=== PATIENT | female | born 1995 | race Caucasian/White ===

== ENCOUNTER 2017-09-02 14:55 | Emergency (ER) | payer SELFPAY ==
[2017-09-02 16:31] LABS: ABSOLUTE LYMPHOCYTES (AUTO) 1.6 10^3/uL (0.5-4.7); ABSOLUTE MONOCYTES (AUTO) 0.3 10^3/uL (0.1-1.4); ABSOLUTE NEUT (AUTO) 3.4 10^3/uL (1.7-8.2); BASOPHILS % (AUTO) 0.5 % (0-2); EOSINOPHILS % (AUTO) 0.3 % (0-6); HEMATOCRIT 34.7 % (36.0-47.0); HEMOGLOBIN 12.2 g/dL (12.0-15.5); LYMPHOCYTES % (AUTO) 30.3 % (13-45); MEAN CORPUSCULAR HEMOGLOBIN 30.9 pg (27.0-33.4); MEAN CORPUSCULAR HGB CONC 35.2 g/dL (32.0-36.0); MEAN CORPUSCULAR VOLUME 88 fl (80-97); MONOCYTES % (AUTO) 5.5 % (3-13); PLATELET COUNT 173 10^3/uL (150-450); RED BLOOD COUNT 3.96 10^6/uL (3.72-5.28); RED CELL DISTRIBUTION WIDTH 13.4 % (11.5-14.0); SEGMENTED NEUTROPHILS % (AUTO) 63.4 % (42-78); TOTAL CELLS COUNTED % (AUTO) 100 %; WHITE BLOOD COUNT 5.3 10^3/uL (4.0-10.5)
[2017-09-02 16:45] LABS: ALANINE AMINOTRANSFERASE 25 U/L (9-52); ALBUMIN 4.1 g/dL (3.5-5.0); ALKALINE PHOSPHATASE 46 U/L (38-126); ANION GAP 10 (5-19); ASPARTATE AMINO TRANSFERASE 17 U/L (14-36); BILIRUBIN,DIRECT 0.2 mg/dL (0.0-0.4); BILIRUBIN,TOTAL 0.3 mg/dL (0.2-1.3); BLOOD UREA NITROGEN 8 mg/dL (7-20); CALCIUM 9.1 mg/dL (8.4-10.2); CARBON DIOXIDE 21 mmol/L (22-30); CHLORIDE 106 mmol/L (98-107); GLUCOSE 82 mg/dL (75-110); POTASSIUM 3.7 mmol/L (3.6-5.0); SODIUM 137.2 mmol/L (137-145)
--- NOTE | 2017-09-02 16:58 | ER Document Report ---
ED GI/ - General Chief Complaint: OB Problem (<20wks) Stated Complaint: POSSIBLE Time Seen by Provider: 09/02/17 15:55 Mode of Arrival: Ambulatory Information source: Patient Notes: 22-year-old female presents to ED for complaint of abdominal pain pelvic pain since June. She states she took multiple test at home and they were positive. She states her period was in the end of May. She states she has been nauseated every morning. She states she has been taking vitamin B6. She states she needs to know how far long she is so that she can set up care. She states she has not seen a doctor or the health department. She states she is currently taking vitamins. TRAVEL OUTSIDE OF THE [place] IN LAST 30 DAYS: No - HPI Patient complains to provider of: Abdominal pain, Vomiting Onset: Other - June Timing/Duration: Intermittent Quality of pain: Pressure Severity at maximum: Severe Severity in ED: Moderate Pain Level: 3 Location: LUQ, LLQ, RUQ, RLQ Vaginal bleeding (Compared to normal period): None Associated symptoms: Nausea, Vomiting Exacerbated by: Denies Relieved by: Denies Similar symptoms previously: Yes Recently seen / treated by doctor: No - Related Data Allergies/Adverse Reactions: No Known Allergies Allergy (Verified 09/02/17 16:32) Past Medical History - General Information source: Patient - Social History Smoking Status: Former Smoker Cigarette use (# per day): No Chew tobacco use (# tins/day): No Smoking Education Provided: No Frequency of alcohol use: None Drug Abuse: None Lives with: Parents Family History: CAD, COPD, CVA, DM, Hyperlipidemia, Hypertension. denies: Arthritis, Malignancy, Thyroid Disfunction Patient has suicidal ideation: No Patient has homicidal ideation: No - Past Medical History Cardiac Medical History: Reports: None Pulmonary Medical History: Reports: None EENT Medical History: Reports: None Neurological Medical History: Reports: None Endocrine Medical History: Reports: None Renal/ Medical History: Reports: None Malignancy Medical History: Reports: None GI Medical History: Reports: Hx Gastritis, Hx Gastroesophageal Reflux Disease, Hx Ulcer Skin Medical History: Reports None Psychiatric Medical History: Reports: Hx Anxiety, Hx Depression Traumatic Medical History: Reports: None Infectious Medical History: Reports: None Surgical Hx: Negative Past Surgical History: Reports: None - Immunizations Immunizations up to date: Yes Hx Diphtheria, Pertussis, Tetanus Vaccination: Yes Review of Systems - Review of Systems Constitutional: No symptoms reported EENT: No symptoms reported Cardiovascular: No symptoms reported Respiratory: No symptoms reported Gastrointestinal: Abdominal pain, Nausea, Vomiting Genitourinary: No symptoms reported Female Genitourinary: Musculoskeletal: No symptoms reported Skin: No symptoms reported Hematologic/Lymphatic: No symptoms reported Neurological/Psychological: No symptoms reported -: Yes All other systems reviewed and negative Physical Exam - Vital signs Vitals: Temp Pulse Resp BP Pulse Ox 98.3 F 76 15 120/57 L 99 09/02/17 15:03 09/02/17 15:03 09/02/17 15:03 09/02/17 15:03 09/02/17 15:03 Interpretation: Normal - General General appearance: Appears well, Alert - HEENT Head: Normocephalic, Atraumatic Eyes: Normal Pupils: PERRL - Respiratory Respiratory status: No respiratory distress Chest status: Nontender Breath sounds: Normal Chest palpation: Normal - Cardiovascular Rhythm: Regular Heart sounds: Normal auscultation Murmur: No - Abdominal Inspection: Normal, Gravid female Distension: No distension Bowel sounds: Normal Tenderness: Tender - Generalized Organomegaly: No organomegaly - Back Back: Normal, Nontender - Extremities General upper extremity: Normal inspection, Nontender, Normal color, Normal ROM , Normal temperature General lower extremity: Normal inspection, Nontender, Normal color, Normal ROM , Normal temperature, Normal weight bearing. No: Karina's sign - Neurological Neuro grossly intact: Yes Cognition: Normal Orientation: AAOx4 Avila Coma Scale Eye Opening: Spontaneous Marion Coma Scale Verbal: Oriented Marion Coma Scale Motor: Obeys Commands Marion Coma Scale Total: 15 Speech: Normal Motor strength normal: LUE, RUE, LLE, RLE Sensory: Normal - Psychological Associated symptoms: Normal affect, Normal mood - Skin Skin Temperature: Warm Skin Moisture: Dry Skin Color: Normal Course - Re-evaluation Re-evalutation: 09/02/17 19:03 Discussed labs and ultrasound with patient. Copy of labs and ultrasound given the patient to follow-up with the primary doctor and OR DIRECTOR. Will discharge patient home. - Vital Signs Vital signs: Temp Pulse Resp BP Pulse Ox 98.3 F 76 15 120/57 L 99 09/02/17 15:03 09/02/17 15:03 09/02/17 15:03 09/02/17 15:03 09/02/17 15:03 - Laboratory Result Diagrams: 09/02/17 16:21 09/02/17 16:21 Laboratory results interpreted by me: 09/02/17 09/02/17 09/02/17 16:21 16:21 16:33 Hct 34.7 L Carbon Dioxide 21 L Creatinine 0.49 L Beta HCG, Quant 46520.00 H Urine Ketones 20 H - Diagnostic Test Radiology reviewed: Image reviewed, Reports reviewed Discharge - Discharge Clinical Impression: Abdominal pain affecting Additional Instructions: ABDOMINAL PAIN: There are many causes of abdominal pain. Pain can mean a serious problem requiring surgery (such as appendicitis). It can also be an innocent problem that goes away on its own (such as a viral infection). Often, time must pass to determine the cause of pain. The physician does not feel that hospitalization is necessary, at present. Things may change within the next 24 hours. Call the doctor or come back for re- examination if any problems occur, such as: (1) Pain that becomes more severe, steady, or becomes concentrated in one specific area. Also, pain that is more severe with movement or coughing. (2) Vomiting that persists or becomes more frequent. (3) Blood in the vomitus, urine, or bowel movements. Blood in the stool may have a tarry or black appearance. (4) Shaking chills or fever greater than 100 degrees F. (5) The abdomen becomes more distended or swollen. (6) Bowel movements cease. (7) Failure to improve as expected. You are . care is best started as early in as possible. If you're unsure about continuing this , you should discuss this with your physician or with occupational physician at [facility]. You should take only medications approved by your physician. Acetaminophen can safely be taken for minor pains. As a rule, medication for chronic conditions such as asthma or seizures can safely be continued. You should discuss with the physician every medicine you take. Any regular exercise program can be continued. Talk to your physician, however, before engaging in competitive or demanding sports. Alcohol, smoking, and "street drugs" are dangerous to your baby. Cocaine is especially dangerous. Don't use any illicit drugs! Use vitamin B6 for your nausea with . Also dinora helps with nausea during pregnancies try using dinora snaps and dinora lore to help you. Please be sure to call the health department or OR DIRECTOR promptly to start with your workup. You are now 13 weeks 6 days with estimated dated delivery of March 04, 2018. I have given you a copy of the labs and written ultrasound report for follow-up with your primary doctor and your OR DIRECTOR. FOLLOW-UP CARE: If you have been referred to a physician for follow-up care, call the physician s office for an appointment as you were instructed or within the next two days. If you experience worsening or a significant change in your symptoms, notify the physician immediately or return to the Emergency Department at any time for re-evaluation.
[2017-09-02 17:01] LABS: APPEARANCE,URINE SLIGHTLY-CLOUDY; BILIRUBIN,URINE NEGATIVE (NEGATIVE); COLOR,URINE YELLOW; GLUCOSE, URINE NEGATIVE (NEGATIVE); KETONES,URINE 20 mg/dL (NEGATIVE); LEUKOCYTE ESTERASE,URINE NEGATIVE (NEGATIVE); NITRITE,URINE NEGATIVE (NEGATIVE); PROTEIN,URINE NEGATIVE (NEGATIVE); URINE SPECIFIC GRAVITY 1.015; UROBILINOGEN,URINE NEGATIVE mg/dL (<2.0)
[2017-09-02 18:04] LABS: URINE AMPHETAMINES SCREEN NEGATIVE; URINE BARBITURATES SCREEN NEGATIVE; URINE BENZODIAZEPINES SCREEN NEGATIVE; URINE COCAINE SCREEN NEGATIVE; URINE MARIJUANA (THC) SCREEN NEGATIVE; URINE METHADONE SCREEN NEGATIVE; URINE PHENCYCLIDINE SCREEN NEGATIVE
--- NOTE | 2017-09-02 18:37 | RADIOLOGY REPORT (SQ) ---
EXAM DESCRIPTION: U/S OB TRANSVAGINAL W/O DOP COMPLETED DATE/TIME: 09/02/2017 6:25 pm REASON FOR STUDY: pelvic pain COMPARISON: None. TECHNIQUE: Transvaginal static and realtime grayscale images acquired of the pelvis. Additional chris cted spectral and color Doppler images recorded. All images stored on PACs. [id number] LIMITATIONS: None. FINDINGS: FETUS: Living intrauterine . EGA: 13 weeks 6 days DONITA: 03/04/2018 FHR: 158 beats per minute. SUBCHORIONIC BLEED: No SIZE OF BLEED: Not applicable. UTERUS: No masses or anomalies. 13 x 8.7 x 8.7 cm. CERVICAL LENGTH: 3.1 cm. Closed. RIGHT ADNEXA: Ovary not identified. No adnexal free fluid. No adnexal masses. LEFT ADNEXA: Ovary not identified. No adnexal free fluid. No adnexal masses. FREE FLUID: None. OTHER: No other significant finding. IMPRESSION: LIVING INTRAUTERINE . EGA 13 weeks 6 days Trimester of : 2nd. TECHNICAL DOCUMENTATION: JOB ID: [id number]- All Rights Reserved Reading location - IP/workstation name: [email or web address]
[2017-09-02 19:12] VITALS: BP 116/69
== END 2017-09-02 19:15 | disposition home or self-care (01) ==
LOC: ER 14:55
DX: O26.899 Other specified pregnancy related conditions, unspecified trimester (principal); R10.2 Pelvic and perineal pain; R10.12 Left upper quadrant pain; R10.31 Right lower quadrant pain; R10.11 Right upper quadrant pain; R10.32 Left lower quadrant pain; R10.817 Generalized abdominal tenderness; O21.9 Vomiting of pregnancy, unspecified; Z3A.00 Weeks of gestation of pregnancy not specified; Z79.899 Other long term (current) drug therapy; Z87.19 Personal history of other diseases of the digestive system
CPT/HCPCS: 36415; 76817; 80053; 80307; 81001; 84702; 85025; 86900; 86901; 87086; 99284

== ENCOUNTER 2018-01-07 10:39 | Emergency (ER) | payer MEDICAID ==
[2018-01-07] MEDS ORDERED: ACETAMINOPHEN 325 MG TABLET PO ONE (13:17)
[2018-01-07] MEDS ORDERED: ONDANSETRON 4 MG TAB.RAPDIS PO ONE (13:17)
--- NOTE | 2018-01-07 13:23 | ER Document Report ---
ED General - General Chief Complaint: Shortness Of Breath Stated Complaint: BACK PAIN, TROUBLE BREATHING Time Seen by Provider: 01/07/18 11:51 Mode of Arrival: Ambulatory Information source: Patient Notes: Chief complaint: Cough History of complain:( obtained from----patient) 22 years old female who is 32 weeks presents today with cough on and off as well as right-sided chest wall pain at the back, nauseous and vomiting. She was able to hold down the liquids but any solids she throws up. She was given Zofran but she ran out a week ago. Since then she is feeling nauseous and vomiting. No fever chills or other constitutional symptoms. Denies any abdominal pain dysuria or frequency. Denies any diarrhea or constipation. Gradual Onset: Gradual Duration: Last few days Severity: Mild to moderate Quality: Sharp Context: Cough coughing increases the pain. Exacerbating factor and relieving factors: REVIEW OF SYSTEMS: CONSTITUTIONAL : Denies fever, chills, or sweats. Denies recent illness. EENT: Denies eye, ear, throat, or mouth pain or symptoms. Denies nasal or sinus congestion or discharge. Denies throat, tongue, or mouth swelling or difficulty swallowing. CARDIOVASCULAR: Denies chest pain. Denies palpitations or racing or irregular heart beat. Denies ankle edema. RESPIRATORY: Denies cough, cold, or chest congestion. Denies shortness of breath, difficulty breathing, or wheezing. GASTROINTESTINAL: Denies distention. Denies nausea, vomiting, or diarrhea. Denies blood in vomitus, stools, or per rectum. Denies black, tarry stools. Denies constipation. GENITOURINARY: Denies difficulty urinating, painful urination, burning, frequency, blood in urine, or discharge. FEMALE GENITOURINARY: Denies vaginal bleeding, heavy or abnormal periods, irregular periods. Denies vaginal discharge or odor. MUSCULOSKELETAL: Denies back or neck pain or stiffness. Denies joint pain or swelling. SKIN: Denies rash, lesions or sores. HEMATOLOGIC : Denies easy bruising or bleeding. LYMPHATIC: Denies swollen, enlarged glands. NEUROLOGICAL: Denies confusion or altered mental status. Denies passing out or loss of consciousness. Denies dizziness or lightheadedness. Denies headache. Denies weakness or paralysis or loss of use of either side. Denies problems with gait or speech. Denies sensory loss, numbness, or tingling. Denies seizures. PSYCHIATRIC: Denies anxiety or stress. Denies depression, suicidal ideation, or homicidal ideation. ALL OTHER SYSTEMS REVIEWED AND NEGATIVE. PHYSICAL EXAMINATION: GENERAL: Well-appearing, well-nourished and in no acute distress. HEAD: Atraumatic, normocephalic. EYES: Pupils equal round and reactive to light, extraocular movements intact, conjunctiva are normal. ENT: Nares patent, oropharynx clear without exudates. Moist mucous membranes. NECK: Normal range of motion, supple without lymphadenopathy LUNGS: Breath sounds clear to auscultation bilaterally and equal. No wheezes rales or rhonchi. Chest wall-right lateral chest wall tenderness noted on palpation. Distended abdomen due to HEART: Regular rate and rhythm without murmurs ABDOMEN: Soft, nontender, distended abdomen due to . No guarding, no rebound. No masses appreciated. Examination of genitals-deferred Musculoskeletal: Normal range of motion, no pitting or edema. No cyanosis. NEUROLOGICAL: Cranial nerves grossly intact. Normal speech, normal gait. Normal sensory, motor exams PSYCH: Normal mood, normal affect. SKIN: Warm, Dry, normal turgor, no rashes or lesions noted. Dictation was performed using [employer] voice recognition software TRAVEL OUTSIDE OF THE [place] IN LAST 30 DAYS: No - HPI Notes: Dictated - Related Data Allergies/Adverse Reactions: No Known Allergies Allergy (Verified 09/02/17 16:32) Past Medical History - Social History Smoking Status: Never Smoker Cigarette use (# per day): No Chew tobacco use (# tins/day): No Frequency of alcohol use: None Drug Abuse: None Lives with: Family Family History: Reviewed & Not Pertinent, CAD, COPD, CVA, DM, Hyperlipidemia, Hypertension. denies: Arthritis, Malignancy, Thyroid Disfunction Patient has suicidal ideation: No Patient has homicidal ideation: No Renal/ Medical History: Denies: Hx Peritoneal Dialysis GI Medical History: Reports: Hx Gastritis, Hx Gastroesophageal Reflux Disease, Hx Ulcer Musculoskeletal Medical History: Reports Hx Musculoskeletal Deformity Psychiatric Medical History: Reports: Hx Anxiety, Hx Depression Past Surgical History: Reports: Hx Orthopedic Surgery - Immunizations Immunizations up to date: Yes Hx Diphtheria, Pertussis, Tetanus Vaccination: Yes Review of Systems - Review of Systems Notes: Dictated Physical Exam - Vital signs Vitals: Temp Pulse Resp BP Pulse Ox 98.9 F 63 16 126/75 H 98 01/07/18 11:11 01/07/18 11:11 01/07/18 11:11 01/07/18 11:11 01/07/18 11:11 - Notes Notes: Dictated Course - Re-evaluation Re-evalutation: 01/07/18 13:23 It was explained the vomiting and the cough caused a sprain of the right chest wall, she was given Tylenol. - Vital Signs Vital signs: Temp Pulse Resp BP Pulse Ox 98.9 F 63 16 126/75 H 98 01/07/18 11:11 01/07/18 11:11 01/07/18 11:11 01/07/18 11:11 01/07/18 11:11 Discharge - Discharge Clinical Impression: Nausea/vomiting in , Chest wall pain, Cough Condition: Fair Disposition: HOME, SELF-CARE Instructions: Antinausea Medication ([facility]), ([facility]) Prescriptions: Azithromycin [Zithromax] 250 mg PO DAILY #6 tablet Prochlorperazine Maleate [Compazine 10 mg Tablet] 10 mg PO Q6 #30 tablet
[2018-01-07 13:47] VITALS: BP 118/75
== END 2018-01-07 13:45 | disposition home or self-care (01) ==
LOC: ER 10:39
DX: O21.9 Vomiting of pregnancy, unspecified (principal); O26.893 Other specified pregnancy related conditions, third trimester; R07.89 Other chest pain; R05 Cough; R06.02 Shortness of breath; M54.9 Dorsalgia, unspecified; Z3A.32 32 weeks gestation of pregnancy
CPT/HCPCS: 99283; J3490; S0119

== ENCOUNTER 2018-01-17 12:01 | Outpatient (CLI) | payer MEDICAID ==
[2018-01-17 12:42] LABS: APPEARANCE,URINE CLEAR; BILIRUBIN,URINE NEGATIVE (NEGATIVE); COLOR,URINE YELLOW; GLUCOSE, URINE NEGATIVE (NEGATIVE); KETONES,URINE NEGATIVE (NEGATIVE); LEUKOCYTE ESTERASE,URINE NEGATIVE (NEGATIVE); NITRITE,URINE NEGATIVE (NEGATIVE); PROTEIN,URINE NEGATIVE (NEGATIVE); URINE SPECIFIC GRAVITY 1.012; UROBILINOGEN,URINE NEGATIVE mg/dL (<2.0)
[2018-01-17 13:08] LABS: ABSOLUTE LYMPHOCYTES (AUTO) 2.3 10^3/uL (0.5-4.7); ABSOLUTE MONOCYTES (AUTO) 0.6 10^3/uL (0.1-1.4); ABSOLUTE NEUT (AUTO) 5.4 10^3/uL (1.7-8.2); BASOPHILS % (AUTO) 0.5 % (0-2); EOSINOPHILS % (AUTO) 0.5 % (0-6); HEMATOCRIT 32.2 % (36.0-47.0); HEMOGLOBIN 11.3 g/dL (12.0-15.5); LYMPHOCYTES % (AUTO) 27.5 % (13-45); MEAN CORPUSCULAR HEMOGLOBIN 31.2 pg (27.0-33.4); MEAN CORPUSCULAR HGB CONC 35.1 g/dL (32.0-36.0); MEAN CORPUSCULAR VOLUME 89 fl (80-97); MONOCYTES % (AUTO) 6.9 % (3-13); PLATELET COUNT 134 10^3/uL (150-450); RED BLOOD COUNT 3.62 10^6/uL (3.72-5.28); RED CELL DISTRIBUTION WIDTH 12.8 % (11.5-14.0); SEGMENTED NEUTROPHILS % (AUTO) 64.6 % (42-78); TOTAL CELLS COUNTED % (AUTO) 100 %; WHITE BLOOD COUNT 8.3 10^3/uL (4.0-10.5)
[2018-01-17 13:23] LABS: ALANINE AMINOTRANSFERASE 17 U/L (9-52); ALKALINE PHOSPHATASE 116 U/L (38-126); ANION GAP 11 (5-19); ASPARTATE AMINO TRANSFERASE 16 U/L (14-36); BILIRUBIN,DIRECT 0.2 mg/dL (0.0-0.4); BILIRUBIN,TOTAL 0.3 mg/dL (0.2-1.3); BLOOD UREA NITROGEN 11 mg/dL (7-20); CALCIUM 8.2 mg/dL (8.4-10.2); CARBON DIOXIDE 19 mmol/L (22-30); CHLORIDE 107 mmol/L (98-107); GLUCOSE 81 mg/dL (75-110); POTASSIUM 3.9 mmol/L (3.6-5.0); SODIUM 136.5 mmol/L (137-145); TOTAL PROTEIN 5.5 g/dL (6.3-8.2); URIC ACID 3.9 mg/dL (2.5-6.2)
[2018-01-17 13:34] LABS: UR PRO/CREAT RATIO RESULT 0.2 mg/mg (0.0-0.2); URINE CREATININE 65.7 mg/dL (16-327); URINE PROTEIN 11.4 mg/dL (<12)
[2018-01-17 13:47] LABS: URINE AMPHETAMINES SCREEN NEGATIVE; URINE BARBITURATES SCREEN NEGATIVE; URINE BENZODIAZEPINES SCREEN NEGATIVE; URINE COCAINE SCREEN NEGATIVE; URINE MARIJUANA (THC) SCREEN NEGATIVE; URINE METHADONE SCREEN NEGATIVE; URINE PHENCYCLIDINE SCREEN NEGATIVE
--- NOTE | 2018-01-17 14:09 | L&D Progress Notes ---
PROGRESS NOTES Datetime Report Generated by CPN: 01/17/2018 14:09 PROGRESS NOTE Impression: Reassuring Heart Rate; Reactive Non Stress Test Impression Other: Normal GHTN work up Procedures- Other: Lab work and urine PCR Plan Other: d/c to home in stable condition Vital Signs : Reviewed; Within Normal Limits Comment: Pt sent over from the office for GHTN work up and headache Headache resolved once pt ate GHTN labwork and urine PCR all negative Will d/c to home F/u with [facility] as scheduled Dr Lerma agrees with plan of care FETUS A FHR - Baseline: 135 Monitoring: External US Variability: Moderate 6-25bpm Accelerations: 15X15 Decelerations: None FHR Category: Category I SIGNATURE SIGNATURE: [id number] Assignment: Elizabeth Lerma MD Signature: with User ID: [email or web address] : with User ID: [email or web address]
--- NOTE | 2018-01-17 15:06 | Non Stress Test Report ---
Non Stress Test Datetime Report Generated by CPN: 01/17/2018 15:06 DEMOGRAPHIC EGA NST: 33.0 INDICATION Indication for Study: Ordered by Provider MONITORING Monitor Explained: Monitor Explained; Test Explained; Patient Verbalized Understanding Time on Monitor: 01/17/2018 12:18 Time off Monitor: 01/17/2018 13:02 NST Duration: 44 NST INTERVENTIONS NST Interventions: PO Hydration; Reposition Patient Physician Notified NST: N Pace CNM BABY A: [id number] BABY A Movement : Present Contraction Frequency : denies FHR Baseline : 135 Accelerations : 15X15 Decelerations : None Variability : Moderate 6-25bpm NST Review: Meets Criteria for Reactive NST NST Review and Verified By : ROBERT Coulter Results: Reactive NST REPORT Report Trigger: Send Report
== END 2018-01-17 14:14 | disposition home or self-care (01) ==
LOC: LC 12:01
PROVIDERS: ATTEND Obstetrics & Gynecology
PROC: 4A1HXCZ Monitoring of Products of Conception, Cardiac Rate, External Approach (ICD-10-PCS; principal; 2018-01-17)
DX: O14.93 Unspecified pre-eclampsia, third trimester (principal); Z3A.33 33 weeks gestation of pregnancy
CPT/HCPCS: 36415; 59025; 80053; 80307; 81001; 82570; 83615; 84156; 84550; 85025

== ENCOUNTER 2018-01-21 22:06 | Emergency (ER) | payer MEDICAID ==
--- NOTE | 2018-01-21 23:28 | ER Document Report ---
ED General - General Chief Complaint: Overdose Stated Complaint: POSSIBLE OVERDOSE Time Seen by Provider: 01/21/18 22:27 Notes: Patient is a 22-year-old female presents with complaint of taking for BuSpar tablets. She said she did this because she was extremely anxious. She has a history of recurrent anxiety. Habits are actually her neighbors. She is not prescribed anything for anxiety. She is approximately 30 weeks 3 weeks . When I asked her if she has any abdominal pain she says "sometimes". She is not having pain right now. She denies any vaginal bleeding. She is sexually monogamous with her fianc. She denies any nausea vomiting. She has no symptoms at this time. TRAVEL OUTSIDE OF THE [place] IN LAST 30 DAYS: No - Related Data Allergies/Adverse Reactions: No Known Allergies Allergy (Verified 01/17/18 12:09) Past Medical History - Social History Smoking Status: Never Smoker Chew tobacco use (# tins/day): No Frequency of alcohol use: None Drug Abuse: None Family History: Reviewed & Not Pertinent, CAD, COPD, CVA, DM, Hyperlipidemia, Hypertension. denies: Arthritis, Malignancy, Thyroid Disfunction Patient has suicidal ideation: No Patient has homicidal ideation: No Renal/ Medical History: Denies: Hx Peritoneal Dialysis GI Medical History: Reports: Hx Gastritis, Hx Gastroesophageal Reflux Disease, Hx Ulcer Musculoskeletal Medical History: Reports Hx Musculoskeletal Deformity Psychiatric Medical History: Reports: Hx Anxiety, Hx Depression Past Surgical History: Reports: Hx Orthopedic Surgery - Immunizations Immunizations up to date: Yes Hx Diphtheria, Pertussis, Tetanus Vaccination: Yes Review of Systems - Review of Systems Notes: My Normal Review Basic REVIEW OF SYSTEMS: CONSTITUTIONAL : Denies fever, chills, or sweats. Denies recent illness. EENT: Denies eye, ear, throat, or mouth pain or symptoms. Denies nasal or sinus congestion. CARDIOVASCULAR: Denies chest pain. RESPIRATORY: Denies cough, cold, or chest congestion. Denies shortness of breath, difficulty breathing, or wheezing. GASTROINTESTINAL: Denies abdominal pain. Denies nausea, vomiting, or diarrhea. FEMALE GENITOURINARY: Denies vaginal bleeding, abnormal or irregular periods. LMP: Currently MUSCULOSKELETAL: Denies neck or back pain or joint pain or swelling. SKIN: Denies rash or skin lesions. NEUROLOGICAL: Denies altered mental status or loss of consciousness. Denies headache. Denies weakness or paralysis or loss of use of either side. Denies problems with gait or speech. Denies sensory or motor loss. PSYCHIATRIC: Anxiety. ALL OTHER SYSTEMS REVIEWED AND NEGATIVE. Physical Exam - Notes Notes: General Appearance: Well nourished, alert, cooperative, no acute distress, no obvious discomfort. Well-appearing. Vitals: reviewed, See vital signs table. Head: no swelling or tenderness to the head Eyes: PERRL, EOMI, Conjuctiva clear Mouth: No decreasd moisture Throat: No tonsillar inflammation, No airway obstruction, No lymphadenopathy Neck: Supple, no neck tenderness, No thyromegaly Lungs: No wheezing, No rales, No rhonci, No accessory muscle use, good air exchange bilaterally. Heart: Normal rate, Regular rythm, No murmur, no rub Abdomen: Normal BS, soft, No rigidity, No abdominal tenderness, No guarding, no rebound, no abdominal masses, no organomegaly. Gravid abdomen Extremities: strength 5/5 in all extremities, good pulses in all extremities, no swelling or tenderness in the extremities, no edema. Skin: warm, dry, appropriate color, no rash Neuro: speech clear, oriented x 3, normal affect, responds appropriately to questions. Course - Re-evaluation Re-evalutation: 01/21/18 23:27 Patient is well-appearing. She is in no distress. She is not tearful or anxious appearing at this time. Did speak with poison control and they did look up the BuSpar and he said there is no risk of harm with taking for BuSpar. Patient will be closely monitored for next couple hours. 01/22/18 01:07 Patient is feeling well. She has no symptoms at this time. Vital signs are normal. She looks well. Feels she is safe to be discharged home. Offered for the patient did speak with mental health but she says she does not need to and feels well. Her fianc is at bedside and seems to give her good support. I encourage her to only take Benadryl for anxiety or for sleep. I encouraged her to only take 25 mg in the furture and if this does not help then she can return to ER and we will reassess her. Encouraged her return to ER immediately if she has severe depression, any thoughts of suicide, or uncontrolled anxiety. Patient agrees with plan will be discharged home. Dictation of this chart was performed using voice recognition software; therefore, there may be some unintended grammatical errors. - Laboratory Result Diagrams: 01/21/18 23:17 01/21/18 23:17 Laboratory results interpreted by me: 01/21/18 01/21/18 23:17 23:17 Hgb 11.5 L Hct 33.3 L Plt Count 135 L Chloride 108 H Carbon Dioxide 20 L Total Protein 6.0 L Albumin 3.0 L Salicylates < 1.0 L Acetaminophen < 10 L - EKG Interpretation by Me Additional EKG results interpreted by me: 01/22/18 00:21 EKG is reviewed and interpreted by me. EKG shows sinus rhythm with rate [address] segment elevation or depression. No ischemic T-wave inversions. NH interval, QRS duration, QTc intervals are within normal range. No old EKG available for comparison. Discharge - Discharge Clinical Impression: Overdose Qualifiers: Encounter type: initial encounter Injury intent: accidental or unintentional Qualified Code(s): T50.901A - Poisoning by unspecified drugs, medicaments and biological substances, accidental (unintentional), initial encounter Qualifiers: Weeks of gestation: 33 weeks Qualified Code(s): Z3A.33 - 33 weeks gestation of Condition: Good Disposition: HOME, SELF-CARE Additional Instructions: Please only take benadryl 25 mg for anxiety. If you continue to have problems with anxiety you should come to the ER for evaluation. please return to the ER immediately if you have severe depression, worsening anxiety, suicidal thoughts , or any concerns for problems with your . Referrals: EMELY GILLESPIE MD [Primary Care Provider] - Follow up as needed
[2018-01-21 23:31] LABS: ABSOLUTE MONOCYTES (AUTO) 0.5 10^3/uL (0.1-1.4); ABSOLUTE NEUT (AUTO) 5.7 10^3/uL (1.7-8.2); BASOPHILS % (AUTO) 0.3 % (0-2); EOSINOPHILS % (AUTO) 0.5 % (0-6); HEMATOCRIT 33.3 % (36.0-47.0); HEMOGLOBIN 11.5 g/dL (12.0-15.5); LYMPHOCYTES % (AUTO) 24.2 % (13-45); MEAN CORPUSCULAR HEMOGLOBIN 30.7 pg (27.0-33.4); MEAN CORPUSCULAR HGB CONC 34.6 g/dL (32.0-36.0); MEAN CORPUSCULAR VOLUME 89 fl (80-97); MONOCYTES % (AUTO) 6.5 % (3-13); PLATELET COUNT 135 10^3/uL (150-450); RED BLOOD COUNT 3.75 10^6/uL (3.72-5.28); RED CELL DISTRIBUTION WIDTH 12.7 % (11.5-14.0); SEGMENTED NEUTROPHILS % (AUTO) 68.5 % (42-78); TOTAL CELLS COUNTED % (AUTO) 100 %; WHITE BLOOD COUNT 8.4 10^3/uL (4.0-10.5)
[2018-01-21 23:46] LABS: ALANINE AMINOTRANSFERASE 25 U/L (9-52); ALKALINE PHOSPHATASE 124 U/L (38-126); ANION GAP 10 (5-19); ASPARTATE AMINO TRANSFERASE 19 U/L (14-36); BILIRUBIN,DIRECT 0.2 mg/dL (0.0-0.4); BILIRUBIN,TOTAL 0.3 mg/dL (0.2-1.3); BLOOD UREA NITROGEN 11 mg/dL (7-20); CARBON DIOXIDE 20 mmol/L (22-30); CHLORIDE 108 mmol/L (98-107); GLUCOSE 78 mg/dL (75-110); POTASSIUM 4.1 mmol/L (3.6-5.0); SODIUM 137.5 mmol/L (137-145)
[2018-01-21 23:49] LABS: ACETAMINOPHEN < 10 ug/mL (10-30); ALCOHOL < 10 mg/dL (NONE DETECTED); SALICYLATE < 1.0 mg/dL (2.0-20.0)
[2018-01-22 00:05] LABS: APPEARANCE,URINE CLEAR; BILIRUBIN,URINE NEGATIVE (NEGATIVE); COLOR,URINE YELLOW; GLUCOSE, URINE NEGATIVE (NEGATIVE); KETONES,URINE NEGATIVE (NEGATIVE); LEUKOCYTE ESTERASE,URINE NEGATIVE (NEGATIVE); NITRITE,URINE NEGATIVE (NEGATIVE); PROTEIN,URINE NEGATIVE (NEGATIVE); URINE SPECIFIC GRAVITY 1.012; UROBILINOGEN,URINE NEGATIVE mg/dL (<2.0)
[2018-01-22 00:19] LABS: URINE AMPHETAMINES SCREEN NEGATIVE; URINE BARBITURATES SCREEN NEGATIVE; URINE COCAINE SCREEN NEGATIVE; URINE METHADONE SCREEN NEGATIVE; URINE PHENCYCLIDINE SCREEN NEGATIVE
[2018-01-22 00:38] LABS: URINE BENZODIAZEPINES SCREEN NEGATIVE; URINE MARIJUANA (THC) SCREEN NEGATIVE
[2018-01-22 01:16] VITALS: BP 126/87
--- NOTE | 2018-01-22 08:41 | EKG REPORT ---
SEVERITY:- BORDERLINE ECG - SINUS RHYTHM BORDERLINE T ABNORMALITIES, ANTERIOR LEADS : Confirmed by: Fausto Clement 22-Jan-2018 08:40:38
== END 2018-01-22 01:15 | disposition home or self-care (01) ==
LOC: ER 22:06
DX: O9A.213 Injury, poisoning and certain other consequences of external causes complicating pregnancy, third trimester (principal); T50.901A Poisoning by unspecified drugs, medicaments and biological substances, accidental (unintentional), initial encounter; F41.9 Anxiety disorder, unspecified; Z3A.33 33 weeks gestation of pregnancy
CPT/HCPCS: 36415; 80053; 80307; 81001; 85025; 93005; 93010; 99285

== ENCOUNTER 2018-02-03 11:24 | Inpatient (IN) | payer MEDICAID ==
[2018-02-03] MEDS ORDERED: MAGNESIUM SULFATE 20 GM/500 ML RTUINJ IV PRN ×2 (11:27→13:08)
[2018-02-03] MEDS ORDERED: MAGNESIUM SULFATE/D5W 1 GM/100 ML RTUPB IV ONE (11:30)
[2018-02-03] MEDS ORDERED: PROPOFOL 1,000 MG/100 ML INFUS..BTL IV ONE (11:37)
[2018-02-03] MEDS ORDERED: MISOPROSTOL 0.2 MG TABLET ONE (12:00)
[2018-02-03] MEDS ORDERED: CARBOPROST TROMETHAMINE INJ 250 MCG/1 ML AMPULE ONE (12:00)
--- NOTE | 2018-02-03 12:07 | ER Document Report ---
ED General - General Chief Complaint: OB Problem (>20wk) Stated Complaint: POSSIBLE SEIZURE Mode of Arrival: Medic TRAVEL OUTSIDE OF THE [place] IN LAST 30 DAYS: No - HPI Patient complains to provider of: Eclampsia Onset: Other - 22-year-old female presents for evaluation of seizures in the setting of being 8 months , had not had previous issues during this . Does have a history of preeclampsia in the past. Was found seizing today with her after having visual disturbances and a headache. - Related Data Allergies/Adverse Reactions: No Known Allergies Allergy (Verified 01/17/18 12:09) Past Medical History - General Information source: Emergency Med Personnel - Social History Smoking Status: Unknown if Ever Smoked Family History: Reviewed & Not Pertinent, CAD, COPD, CVA, DM, Hyperlipidemia, Hypertension. denies: Arthritis, Malignancy, Thyroid Disfunction Renal/ Medical History: Denies: Hx Peritoneal Dialysis GI Medical History: Reports: Hx Gastritis, Hx Gastroesophageal Reflux Disease, Hx Ulcer Musculoskeletal Medical History: Reports Hx Musculoskeletal Deformity Psychiatric Medical History: Reports: Hx Anxiety, Hx Depression Past Surgical History: Reports: Hx Orthopedic Surgery - Immunizations Immunizations up to date: Yes Hx Diphtheria, Pertussis, Tetanus Vaccination: Yes Review of Systems - Review of Systems -: Yes ROS unobtainable due to patient's medical condition Physical Exam - Vital signs Vitals: Resp BP Pulse Ox 23 H 164/111 H 97 02/03/18 11:27 02/03/18 11:27 02/03/18 11:27 - General General appearance: Unresponsive In distress: Severe - HEENT Head: Normocephalic Eyes: Normal Conjunctiva: Normal Cornea: Normal Extraocular movements intact: Yes Eyelashes: Normal - Respiratory Respiratory status: Labored, Tachypnea Chest status: Nontender Breath sounds: Normal Chest palpation: Normal - Cardiovascular Rhythm: Regular, Tachycardia Heart sounds: Normal auscultation Murmur: No - Abdominal Inspection: Other - Obviously gravid - Back Back: Normal - Extremities General upper extremity: Normal inspection, Nontender, Normal strength, Normal temperature General lower extremity: Normal inspection, Nontender, Normal strength, Normal temperature - Neurological Neuro grossly intact: No Smilax Coma Scale Eye Opening: None Avila Coma Scale Verbal: Incomprehensible Avila Coma Scale Motor: Localizes to Pain Smilax Coma Scale Total: 8 Speech: Other Course - Re-evaluation Re-evalutation: 02/03/18 12:47 This 22-year-old female presented in extremis, she was actively seizing having received magnesium, 2 g for active seizures in the setting of being 8 months . She has a history of preeclampsia. OB was called emergently to the bedside, initial blood pressure was measured greater than 160 and 100, determination was made to secure airway as patient was agonal he breathing. Initiated intubation utilized rocuronium as well as etomidate, 7 a tube was secured. Patient was bagged to a pulse ox in the mid 90s. She was sedated utilizing propofol, magnesium infusion was initiated emergently in the emergency department with 1 g IV. OB made determination in patient's best interest to transfer for OR and emergent section, propofol was initiated, blood was drawn, patient was transported emergently to the operating room in the care of a respiratory therapist as well as an obstetrics attending and 3 nurses. ET tube was secured in place. At that time patient's blood pressure continued to be in the 170 systolic range. - Vital Signs Vital signs: Temp Pulse Resp BP Pulse Ox 144 H 18 179/130 H 97 02/03/18 11:40 02/03/18 11:35 02/03/18 11:35 02/03/18 11:35 - Laboratory Result Diagrams: 02/03/18 11:38 02/03/18 11:38 Laboratory results interpreted by me: 02/03/18 11:38 WBC 11.3 H Plt Count 138 L Procedures - Intubation Orotracheal Airway evaluation: Normal anatomy Mallampati Classification: Class 3 Medications: Etomidate, Other - rocuronium Intubation method: Orotracheal Blade type: Other Blade size: 3 Equipment used: Glidescope ETT size: 7.0 ETT secured at: Teeth ETT secured at (cm): 26 Breath Sounds after Intubation: Equal End tidal CO2 confirmed: No Post Intubation Xray: No Intubation Complications: No complications Critical Care Note - Critical Care Note Total time excluding time spent on procedures (mins): 40 Discharge - Discharge Clinical Impression: Eclampsia Condition: Critical Disposition: ADMITTED INPATIENT Unit Admitted: OR
[2018-02-03] MEDS ORDERED: HYDROMORPHONE HCL INJ/PF 2 MG/ML AMPULE ONE ×2 (12:35→13:24)
[2018-02-03] MEDS ORDERED: MIDAZOLAM 2 MG/2 ML INJ ONE (12:35)
[2018-02-03] MEDS ORDERED: CEFAZOLIN 2 GM/D5W RTU 2 GM/50 ML RTUPB IV ONE ×2 (12:54→14:43)
[2018-02-03] MEDS ORDERED: RINGERS SOLUTION,LACTATED 1,000 ML IV ONE (12:54)
[2018-02-03 12:58] LABS: ABSOLUTE EOSINOPHILS # (AUTO) 0.1 10^3/uL (0.0-0.6); ABSOLUTE LYMPHOCYTES (AUTO) 4.6 10^3/uL (0.5-4.7); ABSOLUTE MONOCYTES (AUTO) 0.5 10^3/uL (0.1-1.4); BASOPHILS % (AUTO) 0.4 % (0-2); EOSINOPHILS % (AUTO) 0.7 % (0-6); HEMOGLOBIN 12.6 g/dL (12.0-15.5); LYMPHOCYTES % (AUTO) 41.2 % (13-45); MEAN CORPUSCULAR HEMOGLOBIN 30.4 pg (27.0-33.4); MEAN CORPUSCULAR VOLUME 92 fl (80-97); MONOCYTES % (AUTO) 4.6 % (3-13); PLATELET COUNT 138 10^3/uL (150-450); RED BLOOD COUNT 4.13 10^6/uL (3.72-5.28); RED CELL DISTRIBUTION WIDTH 12.9 % (11.5-14.0); SEGMENTED NEUTROPHILS % (AUTO) 53.1 % (42-78); TOTAL CELLS COUNTED % (AUTO) 100 %; WHITE BLOOD COUNT 11.3 10^3/uL (4.0-10.5)
[2018-02-03] MEDS ORDERED: MEASLES,MUMPS&RUBELLA VACC/PF 0.5 ML VIAL SUBCUT PRN (12:58)
[2018-02-03] MEDS ORDERED: DEXTROSE 40% GEL 15 GM TUBE PO PRN ×2 (12:58)
[2018-02-03] MEDS ORDERED: ACETAMINOPHEN 325 MG TABLET PO PRN (12:58)
[2018-02-03] MEDS ORDERED: PROMETHAZINE HCL INJ 25 MG/1 ML VIAL IV PRN (12:58)
[2018-02-03] MEDS ORDERED: OXYCODONE-ACETAMINOPHEN 5-325 MG TABLET PO PRN ×2 (12:58)
[2018-02-03] MEDS ORDERED: DEXTROSE 50%-WATER 25 GM/50 ML DISP.SYRIN IV PRN ×2 (12:58)
[2018-02-03] MEDS ORDERED: OXYTOCIN/NORMAL SALINE 20 UNIT/1,000 ML RTUINJ IV PRN (12:58)
[2018-02-03] MEDS ORDERED: DIPH/PERTUSS(ACELL)/TETANUS VAC/PF 0.5 ML SYR (>=10YO) IM PRN (12:58)
[2018-02-03] MEDS ORDERED: SIMETHICONE 80 MG TAB.CHEW PO PRN (12:58)
[2018-02-03] MEDS ORDERED: HYDROMORPHONE HCL INJ/PF 2 MG/ML AMPULE IV PRN (12:58)
[2018-02-03] MEDS ORDERED: ACETAMINOPHEN 1,000 MG/100 ML RTUPB IV PRN (12:58)
[2018-02-03] MEDS ORDERED: GLUCAGON,HUMAN RECOMB 1 MG INJ SUBCUT PRN (12:58)
[2018-02-03 12:59] LABS: INTERNATIONAL RATION (INR) 0.88; PROTHROMBIN TIME 12.4 SEC (11.4-15.4)
[2018-02-03 13:00] LABS: FIBRINOGEN 434 mg/dL (209-497); PARTIAL THROMBOPLASTIN TIME 26.6 SEC (23.5-35.8)
[2018-02-03 13:04] LABS: ALANINE AMINOTRANSFERASE 22 U/L (9-52); ALKALINE PHOSPHATASE 177 U/L (38-126); ASPARTATE AMINO TRANSFERASE 32 U/L (14-36); BILIRUBIN,DIRECT 0.3 mg/dL (0.0-0.4); BILIRUBIN,TOTAL 0.3 mg/dL (0.2-1.3); BLOOD UREA NITROGEN 9 mg/dL (7-20); CALCIUM 8.4 mg/dL (8.4-10.2); CARBON DIOXIDE 11 mmol/L (22-30); CHLORIDE 107 mmol/L (98-107); GLUCOSE 151 mg/dL (75-110); POTASSIUM 3.9 mmol/L (3.6-5.0); SODIUM 140.6 mmol/L (137-145); TOTAL PROTEIN 6.3 g/dL (6.3-8.2); URIC ACID 6.5 mg/dL (2.5-6.2)
[2018-02-03 13:10] LABS: ANION GAP 23 (5-19)
[2018-02-03] MEDS ORDERED: DIPHENOXYLATE HCL/ATROP SULF 2.5-0.025 MG TABLET PO ONE (13:10)
[2018-02-03] MEDS ORDERED: MISOPROSTOL 0.2 MG TABLET PR ONE (13:15)
[2018-02-03] MEDS ORDERED: CARBOPROST TROMETHAMINE INJ 250 MCG/1 ML AMPULE IM ONE (13:15)
--- NOTE | 2018-02-03 13:29 | Brief Operative Note ---
BRIEF OPERATIVE REPORT DATE OF SURGERY: 02/03/18 TIME OF SURGERY: 13:00 PREOPERATIVE DIAGNOSIS: Eclampsia, 35+3ega, , Intractable Seizures, Tetanic contraction POSTOPERATIVE DIAGNOSIS: KAYCEE- probable small abruption noted at delivery SURGEON: DAVID RUSSELL FINDINGS: Called to ER by contract analyst In ER. Report was HTN in 8months female with seizure activity. I ordered immediate 6gram load of Magnesium Sulfate. RN reported that 2 grams was given in route by superintendent cemetery. I instructed RN to obtain and administer additional 4 grams Magnesium Sulfate over 30 minutes now. I informed her that I would be there immediately. Upon my arrival minutes later 1 gram Magnesium was infusing and I again requested the remaining 3grams as treatment for Eclampsia is 6gram load over 30 minutes. The patient had abnormal breathing and Severe range BPs with continued seizure activity. ER physician to intubate. Dr. Jett notified regarding need for emergency section and OR team to open. Per history the patient had now been seiing for approximately 1.5 hours. Uterus boggy with probable small abruption. small infant 4#9oz (2070g), Apgars pending. Female delivered at 1158. Uterine tone poor but responded to Intrauterine Hemabate and IV pitocin. Cytotec 1000mcg placed per rectum. COMPLICATIONS: none ESTIMATED BLOOD LOSS: 600ml TISSUE REMOVED OR ALTERED: placenta and cord sent to pathology TECHNICAL PROCEDURE: Primary section
[2018-02-03] MEDS ORDERED: ROCURONIUM BROMIDE INJ 50 MG/5 ML VIAL IV ONE (13:32)
--- NOTE | 2018-02-03 13:33 | Operative Report ---
Operative Report DATE OF SURGERY: 02/03/18 PREOPERATIVE DIAGNOSIS: Eclampsia, 35+3ega, , Intractable Seizures, Tetanic contraction POSTOPERATIVE DIAGNOSIS: KAYCEE- probable small abruption noted at delivery OPERATION: Primary section SURGEON: DAVID RUSSELL ANESTHESIA: GA TISSUE REMOVED OR ALTERED: placenta and cord sent to pathology COMPLICATIONS: none ESTIMATED BLOOD LOSS: 600ml INTRAOPERATIVE FINDINGS: Called to ER by business intelligence director In ER. Report was HTN in 8months female with seizure activity. I ordered immediate 6gram load of Magnesium Sulfate. RN reported that 2 grams was given in route by aquatics director. I instructed RN to obtain and administer additional 4 grams Magnesium Sulfate over 30 minutes now. I informed her that I would be there immediately. Upon my arrival minutes later 1 gram Magnesium was infusing and I again requested the remaining 3grams as treatment for Eclampsia is 6gram load over 30 minutes. The patient had abnormal breathing and Severe range BPs with continued seizure activity. ER physician to intubate. Dr. Jett notified regarding need for emergency section and OR team to open. Per history the patient had now been seizing for approximately 1.5 hours. Uterus boggy with probable small abruption bruising on anterior aspect of uterus. small 4#9oz (2070g), Apgars pending. Female delivered at 1158. Uterine tone poor but responded to Intrauterine Hemabate and IV pitocin. Cytotec 1000mcg placed per rectum. PROCEDURE: Anesthesia provider: [Genny Mayfiled CRNA, Dr. Jett ] Estimated blood loss: [600ml (no QBL due to emergency] Urine output: [275ml] IV fluids: [500ml] Indications: [22yo at 35+3ega presents after having a seizure at home witnessed by partner. He reports that at approximately 0945 she reported seeing black and having difficulty with vision and that she felt that getting in the tub would help so he helped her to the tub and left to get her sister. Then when he arrived with sister she was thrashing in tub. They immediately called EMS and she was brought in to the ER. I was called by rim fire charger operator regarding patient on route and I brought my team to the ER. Upon arrival to ER she had at the moment ceased seizure activity and was stable with O2 sats. She was not following commands and had abnormal breathing pattern likely due to being postictal. I requested documentation of FHR and since unable to find a doppler performed bedside ultrasound with available equipment. FHTs appeared to be in the 140s and was stable despite patients seizure activity on arrival. She was given 2 grams Magnesium sulfate in the Ambulance. I had already requested 4grams additional load to be given over 30 minutes for total of 6 grams of which only 1 gram was hanging upon my arrival in the ER. NICU/ Anesthesia and OR team notified of need for emergent delivery. ER provider intubated the patient. Family notified of need for emergent delivery due to eclampsia and that she was intubated and would remain so until able to be weaned off the vent probably on POD#1. The patient was immediately taken to the OR. Additional IV site and labs obtained in the OR. ETT was adjusted by anesthesia as it was in mainstem bronchus and they informed me that it was okay to begin surgery with now secure airway. Family gave permission for primary section. Hospitalist consult requested as risk for continued sezures ( her sister has seizure disorder) and since was seizing in bathtub (needs clearance of Head due to risk of trauma) and due to need for continued BP management and may need ECHO due to risk of peripartum cardiomyopathy. 3 gams remaining of the magnesium sulfate loading dose was given in the ER. She will be placed on maintanence of 2 grams per hour for at least 12 hours and likely 24 hours . Sole Filler also consulted to assist with management. Review of records with 24 hr UTP on 01/31 of 1500mg which is consistent with diagnosis. Periodic labs ordered for evaluation ] Procedure: The patient was taken to the operating room where ETT was verified and adjusted by anesthesia. She was then prepped and draped in the normal sterile fashion and placed in the dorsal supine position with a leftward tilt. A Pfannenstiel skin incision was then made and carried through to the underlying layers of the fascia with the scalpel. The fascia was incised in the midline and the incision extended laterally with the Fowler scissors. The superior aspect of the fascial incision was then grasped with Ramona clamps elevated and the underlying rectus muscles dissected off [bluntly]. The rectus muscles were then in the midline and the peritoneum at the amount identified and entered [bluntly]. The peritoneal incision was then extended superiorly and inferiorly with good visualization of the bladder. The bladder blade was inserted and the vesicouterine peritoneum identified. The lower uterine segment incised in a transverse fashion with the scalpel. The uterine incision was then extended bluntly and was noted to be very boggy with blue tinged areas consistent with abruption. The bladder blade was removed and the 's head was delivered from cephalic presentation atraumatically. The nose and mouth were suctioned and the cord doubly clamped and cut. And the was handed off to waiting pediatricians. The placenta was then delivered spontaneously and the uterus exteriorized and cleared of all clots and debris. The uterine incision was then repaired with 1- 0 Vicryl in a running locked fashion. A second layer of the same suture was used to obtain hemostasis via imbrication of the initial layer. The bladder flap was then repaired with 3-0 chromic in a running fashion. The uterus was returned to the patient's abdomen and Interceed was placed overlying the uterine incision to prevent adhesions. The gutters were cleared of all clots and debris. All operative sites were noted to be hemostatic. The fascia was reapproximated with 0 Vicryl in a running fashion from each lateral edge to the midline. The skin was closed with 3-0 Monocryl in a running subcuticular fashion with overlying steristrips for additional dressing as well as wound closure. The patient tolerated the procedure well. Sponge lap needle and instrument counts are correct times 2. 2 g of Ancef were given prior to skin incision. The patient was taken to the recovery area awake and in stable condition.
[2018-02-03] MEDS ORDERED: OXYTOCIN/NORMAL SALINE 20 UNIT/1,000 ML RTUINJ ONE (13:39)
[2018-02-03] MEDS: RINGERS SOLUTION,LACTATED 1,000 ML IV PRN ×2 (13:44→22:39)
[2018-02-03] MEDS ORDERED: HYDRALAZINE HCL INJ/PF 20 MG/1 ML SDV ONE (13:46)
[2018-02-03] MEDS ORDERED: HYDRALAZINE HCL INJ/PF 20 MG/1 ML SDV IV ONE (13:49)
[2018-02-03] MEDS: MAGNESIUM SULFATE 20 GM/500 ML RTUINJ IV PRN ×2 (14:01→20:28)
[2018-02-03] MEDS: KETOROLAC TROMETHAMINE INJ/PF 30 MG/1 ML SDV IV SCH ×2 (14:07→22:33)
[2018-02-03 14:48] LABS: URINE AMPHETAMINES SCREEN NEGATIVE; URINE BARBITURATES SCREEN NEGATIVE; URINE COCAINE SCREEN NEGATIVE; URINE MARIJUANA (THC) SCREEN NEGATIVE; URINE METHADONE SCREEN NEGATIVE; URINE PHENCYCLIDINE SCREEN NEGATIVE
[2018-02-03] MEDS ORDERED: ONDANSETRON HCL INJ/PF 4 MG/2 ML SDV IV PRN (14:50)
[2018-02-03] MEDS ORDERED: IPRATROPIUM/ALBUTEROL 0.5-2.5 MG/3 ML AMPUL NEB PRN (14:50)
[2018-02-03] MEDS ORDERED: LABETALOL HCL INJ 20 MG/4 ML DISP.SYRIN IV PRN (14:55)
[2018-02-03 15:01] LABS: URINE BENZODIAZEPINES SCREEN UNCONFIRMED POSITIVE
--- NOTE | 2018-02-03 15:14 | PDOC CONSULTATION ---
Consultation Consult Date: 02/03/18 Attending physician:: DAVID RUSSELL Consult reason:: Hypertension and vent management History of Present Illness Admission Date/PCP: 02/03/18 11:50 DAVID RUSSELL MD Patient complains of: Seizure History of Present Illness: NEGRITA GIBSON is a 22 year old female with a past medical history of hypertension who was 8 months presented to the emergency room with seizure and eclampsia. She was electively intubated and the patient and she was started on loading dose of magnesium sulfate and placed on IV maintenance and she was taken to the OR by WAFER LINE WORKER. Patient had with estimated blood loss around 600 mL. Patient is current leak status post delivery and was transferred to ICU. Patient was found to be hypertensive. Hospitalist service has been consulted for blood pressure management. Patient is currently on propofol for sedation. As per family patient has history of preeclampsia and her sister also had a history of eclampsia and seizure. No history of fever or chills or chest pain or shortness of breath. Currently she has heart rate of 110 with blood pressure of 132/97 after receiving hydralazine IV. Patient is sedated on propofol and she is currently on mechanical ventilation. No further history is available. No further episode of seizure activity. Past Medical History Past Medical History: Hypertension and preeclampsia Cardiac Medical History: Reports: Hypertension Pulmonary Medical History: Denies: None, Asthma, Bronchitis, Chronic Obstructive Pulmonary Disease (COPD ), Intubation, Pneumonia, Respiratory Failure, Sleep Apnea, Tuberculosis, Other Endocrine Medical History: Denies: None, Diabetes Mellitus Type 1, Diabetes Mellitus Type 2, Gestational Diabetes, Hyperthyroidism, Hypothyroidism, Obesity, Other Renal/ Medical History: Denies: None, Chronic Kidney Disease, End Stage Renal Disease, Nephrolithiasis, Other GI Medical History: Reports: Gastroesophageal Reflux Disease Denies: None, Cirrhosis, Crohn's Disease, Diverticulitis, Hepatitis, Hiatal Hernia, Peptic Ulcer Disease, Ulcerative Colitis, Other Psychiatric Medical History: Reports: Depression Past Surgical History Past Surgical History: Reports: Orthopedic Surgery Social History Information Source: Relative Lives with: Family Smoking Status: Unknown if Ever Smoked Frequency of Alcohol Use: None Hx Recreational Drug Use: No Drugs: None Hx Prescription Drug Abuse: No Family History Family History: Reviewed & Not Pertinent, CAD, COPD, CVA, DM, Hyperlipidemia, Hypertension, Other - Sister with history of eclampsia and seizure. denies: Arthritis, Malignancy, Thyroid Disfunction Parental Family History Reviewed: No Children Family History Reviewed: No Sibling(s) Family History Reviewed.: No Medication/Allergy Home Medications: No122/Iron/Folic Acid [ Multi Tablet] 1 tab PO DAILY 01/17/18 Allergies/Adverse Reactions: No Known Allergies Allergy (Verified 01/17/18 12:09) Review of Systems ROS unobtainable: Due to endotracheal tube Physical Exam Vital Signs: Temp Pulse Resp BP Pulse Ox 97.7 F 126 H 14 126/90 H 99 02/03/18 13:45 02/03/18 13:45 02/03/18 14:06 02/03/18 14:06 02/03/18 14:06 Intake & Output 02/02/18 02/03/18 02/04/18 06:59 06:59 06:59 Weight 162 lb 11.218 oz General appearance: PRESENT: no acute distress, other - Patient is sedated and intubated. Head exam: PRESENT: atraumatic, normocephalic Eye exam: PRESENT: EOMI, PERRLA Neck exam: ABSENT: carotid bruit, JVD, lymphadenopathy, thyromegaly Respiratory exam: PRESENT: clear to auscultation katherine. ABSENT: rales, rhonchi, wheezes Cardiovascular exam: PRESENT: RRR, +S1, +S2, tachycardia. ABSENT: systolic murmur GI/Abdominal exam: PRESENT: normal bowel sounds, soft. ABSENT: distended, guarding, mass, organolmegaly, rebound, tenderness Neurological exam: PRESENT: other - Patient is intubated and sedated. Unable to assess neuro completely. Skin exam: PRESENT: dry, intact, warm. ABSENT: cyanosis, rash Results Laboratory Results: Labs reviewed. Assessment & Plan - Diagnosis (1) Eclampsia Is this a current diagnosis for this admission?: Yes Plan: Patient is currently on magnesium sulfate drip. No further episode of seizure activity postdelivery. Patient will be continued on magnesium drip for at least 48 hours. Management as per primary team. (2) Malignant hypertension Is this a current diagnosis for this admission?: Yes Plan: Patient will be started on labetalol IV as needed. Patient's blood pressure is controlled now after IV hydralazine. (3) Respiratory failure Qualifiers: Chronicity: acute Respiratory failure complication: hypoxia Qualified Code(s): J96.01 - Acute respiratory failure with hypoxia Is this a current diagnosis for this admission?: Yes Plan: Secondary to eclampsia and seizure. Patient is intubated and on mechanical ventilation. Will check ABG and chest x-ray. Continue bronchodilators as needed. Will consult critical care physician for vent management tomorrow. - Time Time Spent: 50 to 70 Minutes - Inpatient Certification Medical Necessity: Need For IV Fluids, Need For Continuous Telemetry Monitoring , Need for Neurological Checks
[2018-02-03] MEDS ORDERED: HYDRALAZINE HCL INJ/PF 20 MG/1 ML SDV IV PRN (15:19)
--- NOTE | 2018-02-03 15:20 | RADIOLOGY REPORT (SQ) ---
EXAM DESCRIPTION: CHEST SINGLE VIEW; KUB/ABDOMEN (SINGLE VIEW) COMPLETED DATE/TIME: 02/03/2018 3:09 pm REASON FOR STUDY: ETT/NG placement; NGT placement COMPARISON: None. FINDINGS: Single-view chest. AP portable upright. Endotracheal tube in place, grossly appropriate. Nasogastric tube down with tip in the stomach. Clear lungs. Single-view abdomen, AP portable upright. Nasogastric tube in the stomach. Nonobstructive visualize d bowel gas pattern. No free air. IMPRESSION: 1. Appropriate endotracheal and nasogastric tubes. TECHNICAL DOCUMENTATION: JOB ID: [id number] Reading location - IP/workstation name: [email or web address]
--- NOTE | 2018-02-03 15:20 | RADIOLOGY REPORT (SQ) ---
EXAM DESCRIPTION: CHEST SINGLE VIEW; KUB/ABDOMEN (SINGLE VIEW) COMPLETED DATE/TIME: 02/03/2018 3:09 pm REASON FOR STUDY: ETT/NG placement; NGT placement COMPARISON: None. FINDINGS: Single-view chest. AP portable upright. Endotracheal tube in place, grossly appropriate. Nasogastric tube down with tip in the stomach. Clear lungs. Single-view abdomen, AP portable upright. Nasogastric tube in the stomach. Nonobstructive visualize d bowel gas pattern. No free air. IMPRESSION: 1. Appropriate endotracheal and nasogastric tubes. TECHNICAL DOCUMENTATION: JOB ID: [id number] Reading location - IP/workstation name: [email or web address]
[2018-02-03] MEDS ORDERED: MIDAZOLAM HCL 50 MG/100 ML RTUINJ ONE (15:24)
[2018-02-03 15:45] LABS: HEMATOCRIT 33.2 % (36.0-47.0); HEMOGLOBIN 11.3 g/dL (12.0-15.5); MEAN CORPUSCULAR HEMOGLOBIN 30.2 pg (27.0-33.4); MEAN CORPUSCULAR HGB CONC 34.2 g/dL (32.0-36.0); PLATELET COUNT 110 10^3/uL (150-450); RED BLOOD COUNT 3.75 10^6/uL (3.72-5.28); RED CELL DISTRIBUTION WIDTH 12.9 % (11.5-14.0); WHITE BLOOD COUNT 18.7 10^3/uL (4.0-10.5)
[2018-02-03 15:49] LABS: MEAN CORPUSCULAR VOLUME 88 fl (80-97)
[2018-02-03] MEDS: PROPOFOL 1,000 MG/100 ML INFUS..BTL IV PRN ×2 (16:01→20:06)
[2018-02-03 16:04] LABS: ALANINE AMINOTRANSFERASE 28 U/L (9-52); ALBUMIN 2.3 g/dL (3.5-5.0); ALKALINE PHOSPHATASE 160 U/L (38-126); ANION GAP 6 (5-19); ASPARTATE AMINO TRANSFERASE 36 U/L (14-36); BILIRUBIN,DIRECT 0.2 mg/dL (0.0-0.4); BILIRUBIN,TOTAL 0.2 mg/dL (0.2-1.3); BLOOD UREA NITROGEN 8 mg/dL (7-20); CALCIUM 7.2 mg/dL (8.4-10.2); CARBON DIOXIDE 20 mmol/L (22-30); CHLORIDE 108 mmol/L (98-107); GLUCOSE 88 mg/dL (75-110); POTASSIUM 3.9 mmol/L (3.6-5.0); SODIUM 133.9 mmol/L (137-145); TOTAL PROTEIN 5.1 g/dL (6.3-8.2); URIC ACID 5.8 mg/dL (2.5-6.2)
[2018-02-03 16:08] LABS: ARTERIAL BLOOD BASE EXCESS -8.9 mmol/L; ARTERIAL BLOOD H2CO3 0.99 mmol/L (1.05-1.35); ARTERIAL BLOOD HCO3 16.3 mmol/L (20-24); ARTERIAL BLOOD O2 SATURATION 98.8 % (94-98); ARTERIAL BLOOD PH 7.31 (7.35-7.45); ARTERIAL BLOOD PO2 151.9 mmHg (80-100); ARTERIAL BLOOD TOTAL CO2 17.3 mmol/L (21-25)
[2018-02-03 16:09] LABS: ARTERIAL BLOOD FIO2 40%
[2018-02-03] MEDS ORDERED: PHARMACY COMMUNICATION ORDER MC NR (16:45)
[2018-02-03] MEDS ORDERED: MIDAZOLAM HCL 50 MG/100 ML RTUINJ IV PRN (17:04)
[2018-02-03] MEDS ORDERED: SIMETHICONE 80 MG TAB.CHEW NG PRN (17:30)
[2018-02-03] MEDS ORDERED: DEXTROSE 40% GEL 15 GM TUBE NG PRN ×2 (17:30)
[2018-02-03] MEDS ORDERED: ACETAMINOPHEN 325 MG TABLET NG PRN (17:30)
[2018-02-03] MEDS ORDERED: OXYCODONE-ACETAMINOPHEN 5-325 MG TABLET NG PRN ×2 (17:30)
[2018-02-03] MEDS: DOCUSATE SODIUM 100 MG CAPSULE PO SCH (18:03)
--- NOTE | 2018-02-03 19:02 | RADIOLOGY REPORT (SQ) ---
EXAM DESCRIPTION: CT HEAD WITHOUT COMPLETED DATE/TIME: 02/03/2018 6:43 pm REASON FOR STUDY: HTN emergency, eclampsia, status epilepticus COMPARISON: None. TECHNIQUE: Axial images acquired through the brain without intravenous contrast. Images reviewed wi th bone, brain and subdural windows. Images stored on PACS. All CT scanners at this facility use dose modulation, iterative reconstruction, and/or weight based d osing when appropriate to reduce radiation dose to as low as reasonably achievable (ALARA). [facility]: Dose Right [facility]: SureCare [facility]: Dose Right [facility]: Teradose 4D [facility]: Smart DDN RADIATION DOSE: CT Rad equipment meets quality standard of care and radiation dose reduction techniq ues were employed. CTDIvol: 53.2 mGy. DLP: 937 mGy-cm. mGy. LIMITATIONS: None. 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 There is also slight prominence of CSF containing spaces along the frontal lob es bilaterally. This suggests old insult or mildly dysplastic brain brain. CEREBRUM: As above. No areas of hemorrhage. No abnormal density in the brain. CEREBELLUM: No mass effect. No hemorrhage. No alteration of density. No evidence for acute infarct ion. EXTRAAXIAL SPACES: As above. No hemorrhage or mass detected. ORBITS AND GLOBE: Symmetrical contour of the globes. CALVARIUM: No depressed skull fracture. PARANASAL SINUSES: Mucosal thickening but no fluid levels. SOFT TISSUES: No hematoma. IMPRESSION: 1. 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 No evidence, greer adriana, of acute abnormality. No hemorrhage or mass or shift or suggestion of hydrocephalus. 2. Chron ic paranasal sinus disease. TECHNICAL DOCUMENTATION: JOB ID: [id number] [facility] [id number]: Final reports with documentation of one or more dose reduction techniques (e.g., Automate d exposure control, adjustment of the mA and/or kV according to patient size, use of iterative recons truction technique) 2010 [employer]- All Rights Reserved Reading location - IP/workstation name: [email or web address]
[2018-02-03] MEDS ORDERED: MAGNESIUM SULFATE 20 GM/500 ML RTUINJ IV ONE (20:22)
--- NOTE | 2018-02-03 22:21 | Admission Physical ---
Datetime Report Generated by CPN: 02/03/2018 22:21 CURRENT ADMISSION Chief Complaint: Signs/Symptoms Gestational HTN; Other Chief Complaint Other: Seizure, Eclampsia Admit Impression : , Intrauterine ; No Active Labor; Primary Section Admit Plan: Admit to Unit; Initiate Section Protocol ALLERGIES Medication Allergies: No Medication Allergies: No Known Allergies (01/17/2018) Latex: No Latex Allergies Food Allergies: no Environmental Allergies: no OBSTETRICAL HISTORY EDC: 03/07/2018 00:00 : 1 Para: 0 Term: 0 : 0 SAB: 0 IAB: 0 Ectopic: 0 Livin Cesareans: 0 VBACs: 0 Multiple Births: 0 Gestational Diabetes: No Rh Sensitization: No Incompetent Cervix: No ADA: No Infertility: No ART Treatment: No Uterine Anomaly: No IUGR: No Hx Previous C/S: No Macrosomia: No Hx Loss/Stillborn: No PIH: No Hx : No Placenta Previa/Abruption: No Depression/PP Depression: No PTL/PROM: No Post Hemorrhage: No Current Procedures: Ultrasound; NST SEE RECORDS Alcohol: No Marijuana : Yes Cocaine: No Other Illicit Drugs: Yes Cigarettes: Never Smoker. [id number] MEDICAL HISTORY Diabetes: No Blood Transfusion: No Pulmonary Disease (Asthma, TB): No Breast Disease: No Hypertension: Yes Window Installation Subcontractor Surgery: No Heart Disease: No Hosp/Surgery: No Autoimmune Disorder: No Anesthetic Complications: No Kidney Disease: No Abnormal Pap Smear: Yes Neuro/Epilepsy: Yes Psychiatric Disorders: No Other Medical Diseases: No Hepatitis/Liver Disease: No Significant Family History: No Varicosities/Phlebitis: No Trauma/Violence : No Thyroid Dysfunction: No Medical History Comments: htn on admit with seizures//hx of strep throat INFECTIOUS HISTORY Gonorrhea: No Genital Herpes: No Chlamydia: No Tuberculosis: No Syphilis: No Hepatitis: No HIV/AIDS Exposure: No Rash or Viral Illness: No HPV: No PHYSICAL EXAM General: Normal HEENT: Normal Neurologic: Normal Thyroid: Deferred Heart: Normal Lungs: Normal Breast: Deferred Back: Normal Abdomen: Normal Genitourinary Exam: Normal Extremities: Normal DTRs: Normal Pelvic Type: Adequate Vital Signs: Reviewed Details Vital Signs: severe range BP in ER VAGINAL EXAM Dilatation: 0 Effacement: 0 Station: -3 Contraction Comments: tetanic on palpation in ER FETUS A EGA: 35.3 Monitoring: External US FHR- Baseline: 140 FHR Comments: 140s and stable on US in bedside US In trauma bay Presentation: Vertex Admit Comment: 22yo with GHTN and 24 hr UTP done last week. Turned in on Saturday with result of 1500mg in 24 hrs which is dx of PreE presents to ER today with seizures and severe range BPs. Upon oracle fusion consultant from ER notifying me of patients presence I requested a 6gram Magnesium Sulfate load (see Op Note). Pt with abnormal breathing and continued intermittent seizure activity in the ER and OR team notified and NICU notified re: need for emergent section. TY I on prior pap smears. Pt unable to give consent but family notified and consent for emergency section obtained. Will transfer to ICU postoperatively for continued care. Once able to extubate and make sure seizure activity has ceased will be able to transfer to 2nd floor. Hospitalist and exceptional needs teacher notified/consulted PLANS FOR LABOR AND DELIVERY Labor and Delivery: None Other Pain Management Plans: general No choice given Circumcision: N/A INFORMED CONSENT Informed Consent Obtained: Section Delivery; Risks, Benefits and Alternatives Discussed Signature: with User ID: [email or web address]
[2018-02-04] MEDS: PROPOFOL 1,000 MG/100 ML INFUS..BTL IV PRN (01:37)
[2018-02-04 04:23] LABS: HEMOGLOBIN 10.7 g/dL (12.0-15.5); MEAN CORPUSCULAR HEMOGLOBIN 30.8 pg (27.0-33.4); MEAN CORPUSCULAR HGB CONC 34.6 g/dL (32.0-36.0); MEAN CORPUSCULAR VOLUME 89 fl (80-97); PLATELET COUNT 102 10^3/uL (150-450); RED BLOOD COUNT 3.49 10^6/uL (3.72-5.28); RED CELL DISTRIBUTION WIDTH 13.2 % (11.5-14.0); WHITE BLOOD COUNT 9.7 10^3/uL (4.0-10.5)
[2018-02-04 04:26] LABS: ALANINE AMINOTRANSFERASE 31 U/L (9-52); ALBUMIN 2.2 g/dL (3.5-5.0); ALKALINE PHOSPHATASE 152 U/L (38-126); ANION GAP 8 (5-19); ASPARTATE AMINO TRANSFERASE 47 U/L (14-36); BILIRUBIN,DIRECT 0.2 mg/dL (0.0-0.4); BILIRUBIN,TOTAL 0.2 mg/dL (0.2-1.3); BLOOD UREA NITROGEN 7 mg/dL (7-20); CARBON DIOXIDE 20 mmol/L (22-30); CHLORIDE 105 mmol/L (98-107); GLUCOSE 69 mg/dL (75-110); POTASSIUM 4.2 mmol/L (3.6-5.0); SODIUM 132.7 mmol/L (137-145); TOTAL PROTEIN 4.7 g/dL (6.3-8.2); URIC ACID 5.5 mg/dL (2.5-6.2)
[2018-02-04 04:35] LABS: CALCIUM 6.3 mg/dL (8.4-10.2)
[2018-02-04] MEDS ORDERED: CALCIUM GLUCONATE 2,000 MG in DEXTROSE 5%-WATER 100 ML IV ONE (05:00)
[2018-02-04] MEDS: KETOROLAC TROMETHAMINE INJ/PF 30 MG/1 ML SDV IV SCH (05:05)
[2018-02-04] MEDS ORDERED: CALCIUM GLUCONATE 1000 MG/10 ML INJ IV ONE ×2 (05:19→05:25)
[2018-02-04 06:19] LABS: ARTERIAL BLOOD BASE EXCESS -3.2 mmol/L; ARTERIAL BLOOD H2CO3 1.08 mmol/L (1.05-1.35); ARTERIAL BLOOD HCO3 21.3 mmol/L (20-24); ARTERIAL BLOOD O2 SATURATION 99.1 % (94-98); ARTERIAL BLOOD PCO2 35.9 mmHg (35-45); ARTERIAL BLOOD PH 7.39 (7.35-7.45); ARTERIAL BLOOD PO2 161.1 mmHg (80-100); ARTERIAL BLOOD TOTAL CO2 22.4 mmol/L (21-25)
[2018-02-04 06:21] LABS: ARTERIAL BLOOD FIO2 40%
[2018-02-04] MEDS: MAGNESIUM SULFATE 20 GM/500 ML RTUINJ IV PRN (07:36)
[2018-02-04] MEDS: DOCUSATE SODIUM 100 MG CAPSULE PO SCH ×2 (09:27→19:25)
[2018-02-04] MEDS: PRENATAL VITAMIN W DHA CAPSULE PO SCH (09:28)
[2018-02-04] MEDS ORDERED: LORAZEPAM INJ 2 MG/1 ML VIAL IV PRN (09:40)
--- NOTE | 2018-02-04 10:17 | PDOC PROGRESS REPORT ---
Subjective Progress Note for:: 02/04/18 Subjective:: intubated but alert and awake. answering questions with nods and shakes of head. RNs informing me that plan to attempt intubation when metal checker arrives to assess. Pt received Ca Gluconate for Ca replacement however Magnesium is still running. Patient is copiously diuresising now. Reason For Visit: Physical Exam - Physical Exam Vital Signs: Temp Pulse Resp BP Pulse Ox 96.9 F L 83 14 105/77 100 02/04/18 07:00 02/04/18 08:39 02/04/18 06:00 02/04/18 05:58 02/04/18 08:36 Intake & Output 02/03/18 02/04/18 02/05/18 06:59 06:59 06:59 Intake Total 3142 691 Output Total 1910 595 Balance 1232 96 Weight 96.9 kg General appearance: PRESENT: cooperative, mild distress Eye exam: PRESENT: periorbital swelling, PERRLA Respiratory exam: PRESENT: unlabored, other - intubated at this time Pulses: PRESENT: normal radial pulses Vascular exam: PRESENT: normal capillary refill GI/Abdominal exam: PRESENT: tenderness - appropriate for post op period Neurological exam: PRESENT: alert, awake, oriented to person, oriented to place , oriented to time, oriented to situation Psychiatric exam: PRESENT: appropriate affect Result Laboratory Results: 02/04/18 04:06 02/04/18 04:06 02/03/18 02/03/18 02/03/18 15:37 15:37 15:50 WBC 18.7 H RBC 3.75 Hgb 11.3 L Hct 33.2 L MCV 88 D MCH 30.2 MCHC 34.2 RDW 12.9 Plt Count 110 L Carbonic Acid 0.99 L HCO3/H2CO3 Ratio 16:1 ABG pH 7.31 L ABG pCO2 33.0 L ABG pO2 151.9 H ABG HCO3 16.3 L ABG O2 Saturation 98.8 H ABG Base Excess -8.9 FiO2 40% Sodium 133.9 L Potassium 3.9 Chloride 108 H Carbon Dioxide 20 L Anion Gap 6 BUN 8 Creatinine 0.51 L Est GFR ( Amer) > 60 Est GFR (Non-Af Amer) > 60 Glucose 88 Uric Acid 5.8 Calcium 7.2 L Total Bilirubin 0.2 AST 36 ALT 28 Alkaline Phosphatase 160 H Total Protein 5.1 L Albumin 2.3 L 02/04/18 02/04/18 02/04/18 04:06 04:06 06:11 WBC 9.7 RBC 3.49 L Hgb 10.7 L Hct 31.0 L MCV 89 MCH 30.8 MCHC 34.6 RDW 13.2 Plt Count 102 L Carbonic Acid 1.08 HCO3/H2CO3 Ratio 19:1 ABG pH 7.39 ABG pCO2 35.9 ABG pO2 161.1 H ABG HCO3 21.3 ABG O2 Saturation 99.1 H ABG Base Excess -3.2 FiO2 40% Sodium 132.7 L Potassium 4.2 Chloride 105 Carbon Dioxide 20 L Anion Gap 8 BUN 7 Creatinine 0.60 Est GFR ( Amer) > 60 Est GFR (Non-Af Amer) > 60 Glucose 69 L Uric Acid 5.5 Calcium 6.3 L* Total Bilirubin 0.2 AST 47 H ALT 31 Alkaline Phosphatase 152 H Total Protein 4.7 L Albumin 2.2 L Impressions: Chest X-Ray 02/03/18 00:00 IMPRESSION: 1. Appropriate endotracheal and nasogastric tubes. Head CT 02/03/18 00:00 IMPRESSION: 1. 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 No evidence, however, of acute abnormality. No hemorrhage or mass or shift or suggestion of hydrocephalus. 2. Chronic paranasal sinus disease. KUB X-Ray 02/03/18 00:00 IMPRESSION: 1. Appropriate endotracheal and nasogastric tubes. Assessment & Plan - Diagnosis (1) Eclampsia Is this a current diagnosis for this admission?: Yes (2) Malignant hypertension Is this a current diagnosis for this admission?: Yes (3) Respiratory failure Qualifiers: Chronicity: acute Respiratory failure complication: hypoxia Qualified Code(s): J96.01 - Acute respiratory failure with hypoxia Is this a current diagnosis for this admission?: Yes (4) Status post primary low transverse section Is this a current diagnosis for this admission?: Yes - Time Time Spent with patient: 15-24 minutes Anticipated discharge: Home Within: within 72 hours - Inpatient Certification Based on my medical assessment, after consideration of the patient's comorbidities, presenting symptoms, or acuity I expect that the services needed warrant INPATIENT care.: Yes I certify that my determination is in accordance with my understanding of Medicare's requirements for reasonable and necessary INPATIENT services [42 CFR 412.3e].: Yes Medical Necessity: Need Close Monitoring Due to Risk of Patient Decompensation - plan for transfer to floor when extubated and transfer safe. Continue antihypertensives as needed. Repeat labs to monitor for HELLP syndrome
[2018-02-04] MEDS ORDERED: IBUPROFEN 800 MG TABLET NG SCH (12:00)
[2018-02-04 12:07] LABS: HEMOGLOBIN 11.1 g/dL (12.0-15.5); MEAN CORPUSCULAR HEMOGLOBIN 30.7 pg (27.0-33.4); MEAN CORPUSCULAR HGB CONC 34.7 g/dL (32.0-36.0); MEAN CORPUSCULAR VOLUME 89 fl (80-97); PLATELET COUNT 118 10^3/uL (150-450); RED BLOOD COUNT 3.61 10^6/uL (3.72-5.28); RED CELL DISTRIBUTION WIDTH 13.3 % (11.5-14.0); WHITE BLOOD COUNT 12.4 10^3/uL (4.0-10.5)
[2018-02-04] MEDS: RINGERS SOLUTION,LACTATED 1,000 ML IV PRN (12:21)
[2018-02-04 12:24] LABS: ARTERIAL BLOOD H2CO3 0.92 mmol/L (1.05-1.35); ARTERIAL BLOOD PCO2 30.5 mmHg (35-45); ARTERIAL BLOOD PH 7.46 (7.35-7.45); ARTERIAL BLOOD PO2 85.8 mmHg (80-100); ARTERIAL BLOOD TOTAL CO2 21.9 mmol/L (21-25)
[2018-02-04 12:25] LABS: ARTERIAL BLOOD FIO2 30%
[2018-02-04 12:33] LABS: ALANINE AMINOTRANSFERASE 29 U/L (9-52); ALBUMIN 2.5 g/dL (3.5-5.0); ALKALINE PHOSPHATASE 159 U/L (38-126); ANION GAP 8 (5-19); ASPARTATE AMINO TRANSFERASE 52 U/L (14-36); BILIRUBIN,DIRECT 0.2 mg/dL (0.0-0.4); BILIRUBIN,TOTAL 0.4 mg/dL (0.2-1.3); BLOOD UREA NITROGEN 6 mg/dL (7-20); CARBON DIOXIDE 19 mmol/L (22-30); CHLORIDE 105 mmol/L (98-107); GLUCOSE 77 mg/dL (75-110); POTASSIUM 4.3 mmol/L (3.6-5.0); SODIUM 131.7 mmol/L (137-145); TOTAL PROTEIN 5.4 g/dL (6.3-8.2); URIC ACID 5.2 mg/dL (2.5-6.2)
[2018-02-04 12:44] LABS: CALCIUM 6.3 mg/dL (8.4-10.2)
--- NOTE | 2018-02-04 14:39 | PDOC PROGRESS REPORT ---
Subjective Progress Note for:: 02/04/18 Subjective:: The patient is awake and responsive on the vent. Blood pressures are well under control and she has had no further seizure activity. Reason For Visit: Physical Exam Vital Signs: Temp Pulse Resp BP Pulse Ox 99.4 F 96 25 H 127/92 H 98 02/04/18 12:00 02/04/18 11:31 02/04/18 14:00 02/04/18 13:59 02/04/18 14:00 Intake & Output 02/03/18 02/04/18 02/05/18 06:59 06:59 06:59 Intake Total 3142 1141.52 Output Total 1910 1085 Balance 1232 56.52 Weight 96.9 kg General appearance: PRESENT: no acute distress, cooperative, other - Mechanically ventilated. Off of sedation. Eye exam: PRESENT: PERRLA. ABSENT: nystagmus, scleral icterus Neck exam: ABSENT: lymphadenopathy, meningismus, thyromegaly, tracheal deviation Respiratory exam: PRESENT: symmetrical, other - No increased work of breathing. No wheezes, rales, or rhonchi. Cardiovascular exam: PRESENT: RRR, other - No lateal PMI. No thrills.. ABSENT: gallop, rubs, systolic murmur GI/Abdominal exam: PRESENT: normal bowel sounds, other - Fundus is firm, non- tender.. ABSENT: distended, hernia, tenderness Extremities exam: ABSENT: joint swelling, pedal edema, tenderness Musculoskeletal exam: ABSENT: deformity, dislocation, normal inspection Neurological exam: PRESENT: other - Pt is intubated, but off sedation currently. Skin exam: PRESENT: dry, intact, warm Results Laboratory Results: 02/04/18 11:38 02/04/18 11:38 02/03/18 02/03/18 02/03/18 15:37 15:37 15:50 WBC 18.7 H RBC 3.75 Hgb 11.3 L Hct 33.2 L MCV 88 D MCH 30.2 MCHC 34.2 RDW 12.9 Plt Count 110 L Carbonic Acid 0.99 L HCO3/H2CO3 Ratio 16:1 ABG pH 7.31 L ABG pCO2 33.0 L ABG pO2 151.9 H ABG HCO3 16.3 L ABG O2 Saturation 98.8 H ABG Base Excess -8.9 FiO2 40% Sodium 133.9 L Potassium 3.9 Chloride 108 H Carbon Dioxide 20 L Anion Gap 6 BUN 8 Creatinine 0.51 L Est GFR ( Amer) > 60 Est GFR (Non-Af Amer) > 60 Glucose 88 Uric Acid 5.8 Calcium 7.2 L Magnesium Total Bilirubin 0.2 AST 36 ALT 28 Alkaline Phosphatase 160 H Total Protein 5.1 L Albumin 2.3 L 02/04/18 02/04/18 02/04/18 04:06 04:06 04:06 WBC 9.7 RBC 3.49 L Hgb 10.7 L Hct 31.0 L MCV 89 MCH 30.8 MCHC 34.6 RDW 13.2 Plt Count 102 L Carbonic Acid HCO3/H2CO3 Ratio ABG pH ABG pCO2 ABG pO2 ABG HCO3 ABG O2 Saturation ABG Base Excess FiO2 Sodium 132.7 L Potassium 4.2 Chloride 105 Carbon Dioxide 20 L Anion Gap 8 BUN 7 Creatinine 0.60 Est GFR ( Amer) > 60 Est GFR (Non-Af Amer) > 60 Glucose 69 L Uric Acid 5.5 Calcium 6.3 L* Magnesium 7.9 H* Total Bilirubin 0.2 AST 47 H ALT 31 Alkaline Phosphatase 152 H Total Protein 4.7 L Albumin 2.2 L 02/04/18 02/04/18 02/04/18 06:11 11:38 11:38 WBC 12.4 H RBC 3.61 L Hgb 11.1 L Hct 32.0 L MCV 89 MCH 30.7 MCHC 34.7 RDW 13.3 Plt Count 118 L Carbonic Acid 1.08 HCO3/H2CO3 Ratio 19:1 ABG pH 7.39 ABG pCO2 35.9 ABG pO2 161.1 H ABG HCO3 21.3 ABG O2 Saturation 99.1 H ABG Base Excess -3.2 FiO2 40% Sodium 131.7 L Potassium 4.3 Chloride 105 Carbon Dioxide 19 L Anion Gap 8 BUN 6 L Creatinine 0.62 Est GFR ( Amer) > 60 Est GFR (Non-Af Amer) > 60 Glucose 77 Uric Acid 5.2 Calcium 6.3 L* Magnesium Total Bilirubin 0.4 AST 52 H ALT 29 Alkaline Phosphatase 159 H Total Protein 5.4 L Albumin 2.5 L 02/04/18 12:00 WBC RBC Hgb Hct MCV MCH MCHC RDW Plt Count Carbonic Acid 0.92 L HCO3/H2CO3 Ratio 22:1 ABG pH 7.46 H ABG pCO2 30.5 L ABG pO2 85.8 ABG HCO3 21.0 ABG O2 Saturation 97.0 ABG Base Excess -2.0 FiO2 30% Sodium Potassium Chloride Carbon Dioxide Anion Gap BUN Creatinine Est GFR ( Amer) Est GFR (Non-Af Amer) Glucose Uric Acid Calcium Magnesium Total Bilirubin AST ALT Alkaline Phosphatase Total Protein Albumin Impressions: Chest X-Ray 02/03/18 00:00 IMPRESSION: 1. Appropriate endotracheal and nasogastric tubes. Head CT 02/03/18 00:00 IMPRESSION: 1. 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 No evidence, however, of acute abnormality. No hemorrhage or mass or shift or suggestion of hydrocephalus. 2. Chronic paranasal sinus disease. KUB X-Ray 02/03/18 00:00 IMPRESSION: 1. Appropriate endotracheal and nasogastric tubes. Assessment & Plan - Diagnosis (1) Eclampsia Is this a current diagnosis for this admission?: Yes Plan: Blood pressures are in normal range and there have been no more seizure activity. (2) Malignant hypertension Is this a current diagnosis for this admission?: Yes Plan: Resolved. Well controlled on prn hydralazine. Once taking PO will put on labetalol. The patient has told nursing that she does not intend to nurse the baby. (3) Respiratory failure Qualifiers: Chronicity: acute Respiratory failure complication: hypoxia Qualified Code(s): J96.01 - Acute respiratory failure with hypoxia Is this a current diagnosis for this admission?: Yes Plan: The patient is being evaluated by Dr. Farnwsorth to see if she is appropriate for extubation today. (4) Status post primary low transverse section Is this a current diagnosis for this admission?: Yes Plan: Noted. As per primary. - Time Time Spent with patient: 25-34 minutes Medications reviewed and adjusted accordingly: Yes
[2018-02-04] MEDS ORDERED: ATENOLOL 50 MG TABLET ONE (14:51)
[2018-02-04] MEDS ORDERED: SIMETHICONE 80 MG TAB.CHEW PO PRN (15:00)
[2018-02-04] MEDS ORDERED: ACETAMINOPHEN 325 MG TABLET PO PRN (15:00)
[2018-02-04] MEDS ORDERED: OXYCODONE-ACETAMINOPHEN 5-325 MG TABLET PO PRN (15:00)
[2018-02-04] MEDS: ATENOLOL 50 MG TABLET PO SCH ×2 (15:15→22:26)
[2018-02-04] MEDS: OXYCODONE-ACETAMINOPHEN 5-325 MG TABLET PO PRN ×2 (16:15→22:25)
[2018-02-04] MEDS: IBUPROFEN 800 MG TABLET PO SCH (19:25)
[2018-02-05] MEDS: IBUPROFEN 800 MG TABLET PO SCH ×5 (00:45→23:30)
[2018-02-05] MEDS: OXYCODONE-ACETAMINOPHEN 5-325 MG TABLET PO PRN (05:09)
[2018-02-05 07:21] LABS: ABSOLUTE LYMPHOCYTES (AUTO) 1.9 10^3/uL (0.5-4.7); ABSOLUTE MONOCYTES (AUTO) 0.5 10^3/uL (0.1-1.4); ABSOLUTE NEUT (AUTO) 7.9 10^3/uL (1.7-8.2); BASOPHILS % (AUTO) 0.2 % (0-2); EOSINOPHILS % (AUTO) 0.2 % (0-6); HEMATOCRIT 29.7 % (36.0-47.0); HEMOGLOBIN 10.4 g/dL (12.0-15.5); LYMPHOCYTES % (AUTO) 18.6 % (13-45); MEAN CORPUSCULAR HEMOGLOBIN 31.2 pg (27.0-33.4); MEAN CORPUSCULAR VOLUME 89 fl (80-97); MONOCYTES % (AUTO) 5.2 % (3-13); PLATELET COUNT 153 10^3/uL (150-450); RED BLOOD COUNT 3.33 10^6/uL (3.72-5.28); RED CELL DISTRIBUTION WIDTH 13.4 % (11.5-14.0); SEGMENTED NEUTROPHILS % (AUTO) 75.8 % (42-78); TOTAL CELLS COUNTED % (AUTO) 100 %; WHITE BLOOD COUNT 10.4 10^3/uL (4.0-10.5)
[2018-02-05 07:37] LABS: ANION GAP 5 (5-19); BLOOD UREA NITROGEN 8 mg/dL (7-20); CARBON DIOXIDE 22 mmol/L (22-30); CHLORIDE 111 mmol/L (98-107); GLUCOSE 92 mg/dL (75-110); POTASSIUM 4.2 mmol/L (3.6-5.0); SODIUM 137.8 mmol/L (137-145)
[2018-02-05 07:57] LABS: CALCIUM 7.1 mg/dL (8.4-10.2)
--- NOTE | 2018-02-05 08:13 | Delivery Summary ---
Del Sum A-C Datetime Report Generated by CPN: 02/05/2018 08:13 DELIVERY PERSONNEL DELIVERY PERSONNEL: [id number] Delivery Doctor:: Estela Goodman MD Delivery Doctor:: Estela Goodman MD Anesthesiologist:: Russel Jett MD Anesthesiologist:: Russel Jett MD BACK TENDER CYLINDER:: Genny Mayfield CRNA BACK TENDER CYLINDER:: Genny Mayfield CRNA Labor and Delivery Nurse:: Veronica Olivia RN Fertilizer Loader:: FRED Ponce Fertilizer Loader:: FRED Ponce Psychiatric Attendant:: Dr. Marvin Elliott [place] Nurse:: Sophia Gallagher RN Kitchen Food Assembler/COMMUNITY OUTREACH SPECIALIST: ST Rene Kitchen Food Assembler/COMMUNITY OUTREACH SPECIALIST: ST Rene Kitchen Food Assembler/COMMUNITY OUTREACH SPECIALIST: Eleanor Fernandes CST Kitchen Food Assembler/COMMUNITY OUTREACH SPECIALIST: Eleanor Fernandes CST Additional Personnel: : Melanie Fulton RN MATERNAL INFORMATION Delivery Anesthesia: General Medications After Delivery: Pitocin Drip 20 Units/1000ml NSS; Cytotec 1000mcg Per Rectum/Vagina; Other-Please Comment Meds After Delivery Comment: hemabate Estimated Blood Loss (ml): 600 Maternal Complications: Seizures; Other Complication Details: Eclampsia LABOR SUMMARY EDC: 03/07/2018 00:00 No. Babies in Womb: 1 Attempted: No Labor Anesthesia: None LABOR INFORMATION Reason for Induction: Not Applicable Oxytocin: N/A Group B Beta Strep: unknown Steroids Given: None Reason Steroids Not Administered: Not Applicable MEMBRANES Membranes Rupture Method: Spontaneous Rupture of Membranes: 01/27/2018 11:55 Length of Rupture (hr): 168.05 Amniotic Fluid Color: Clear Amniotic Fluid Amount: Scant Amniotic Fluid Odor: None STAGES OF LABOR Stage 3 hr: 0 Stage 3 min: 0 VAGINAL DELIVERY Episiotomy: None Laceration #1: None Laceration Extension #1: N/A Laceration Repair: Not Applicable Sponge Count Correct: N/A Sharps Count Correct: N/A CSECTION DELIVERY Primary Indication: Other Other Primary Indication: Eclampsia Secondary Indication: Abruptio Placenta CSection Urgency: Emergency CSection Incidence: Primary Labor: No Labor Elective: Nonelective CSection Incision: Lower Uterine Transverse BABY A INFORMATION Infant Delivery Date/Time: 02/03/2018 11:58 Method of Delivery: Born in Route : No : N/A Forceps: N/A Vacuum Extraction: N/A Shoulder Dystocia : No PRESENTATION/POSITION BABY A Presentation: Cephalic Cephalic Presentation: Vertex Breech Presentation: N/A PLACENTA INFORMATION BABY A Placenta Delivery Time : 02/03/2018 11:58 Placenta Method of Delivery: Manual Removal Placenta Status: Delivered SCORES BABY A Heart Rate 1 min: >100 bpm Resp Effort 1 min: Absent Reflex Irritability 1 min: No Response Muscle Tone 1 min: Flaccid Color 1 min: Body [place], Extremities Blue Resuscitation Effort 1 min: Tactile Stimulation; PPV/NCPAP SCORE 1 MIN: 3 Heart Rate 5 min: >100 bpm Resp Effort 5 min: Slow, Irregular Reflex Irritability 5 min: Grimace Muscle Tone 5 min: Some Flexion of Extremities Color 5 min: Body [place], Extremities Blue Resuscitation Effort 5 min: Tactile Stimulation; PPV/NCPAP SCORE 5 MIN: 6 Heart Rate 10 min: >100 bpm Resp Effort 10 min: Slow, Irregular Reflex Irritability 10 min: Cough or Sneeze or Pulls Away Muscle Tone 10 min: Some Flexion of Extremities Color 10 min: Completely [place] Resuscitation Effort 10 min: Tactile Stimulation; PPV/NCPAP SCORE 10 MIN: 8 INFANT INFORMATION BABY A Gestational Age at Delivery: 35.3 Gestational Status: Late - 34- 36.6 Weeks Outcome : Liveborn Condition : Critical Infant Sex: Female IDENTIFICATION BABY A Verification Date/Time: 02/03/2018 12:17 ID Band Number: [id number] Mother's Name Verified: Yes RN Verifying : B Baidy RN/ D Bellavance RN WEIGHT/LENGTH BABY A Infant Birthweight (gm): 2070 Infant Weight (lb): 4 Weight (oz): 9 Length (in): 17.50 Length (cm): 44.45 CORD INFORMATION BABY A No. Cord Vessels: 3 Nuchal Cord : N/A Cord Blood Taken: Yes-For Eval (Mom's Blood Type - or O+) Suction: None ASSESSMENT BABY A Complications: Other Complications- Other: exposure to general anesthesia Physical Findings at Delivery: Other Psychiatric Attendant/ALS Called : Yes Infant Care By: Dr Lexi Transferred To: NICU BABY B INFORMATION : N/A
[2018-02-05] MEDS: PRENATAL VITAMIN W DHA CAPSULE PO SCH (09:39)
--- NOTE | 2018-02-05 10:15 | RADIOLOGY REPORT (SQ) ---
EXAM DESCRIPTION: CHEST 2 VIEWS COMPLETED DATE/TIME: 02/05/2018 10:06 am REASON FOR STUDY: low Ox sat this am COMPARISON: 02/03/2018 the right lung is clear. EXAM PARAMETERS: NUMBER OF VIEWS: two views TECHNIQUE: Digital Frontal and Lateral radiographic views of the chest acquired. RADIATION DOSE: NA LIMITATIONS: none FINDINGS: LUNGS AND PLEURA: Subsegmental airspace disease in the left lower lobe. MEDIASTINUM AND HILAR STRUCTURES: No masses or contour abnormalities. HEART AND VASCULAR STRUCTURES: Stable heart size. No evidence for failure. BONES: No acute findings. HARDWARE: None in the chest. OTHER: No other significant finding. IMPRESSION: Left lower lobe atelectasis or early pneumonia. TECHNICAL DOCUMENTATION: JOB ID: [id number] [employer]- All Rights Reserved Reading location - IP/workstation name: [email or web address]
[2018-02-05] MEDS: ATENOLOL 50 MG TABLET PO SCH ×2 (10:56→23:30)
[2018-02-05] MEDS: DOCUSATE SODIUM 100 MG CAPSULE PO SCH ×2 (10:58→17:28)
[2018-02-05] MEDS ORDERED: IPRATROPIUM/ALBUTEROL 0.5-2.5 MG/3 ML AMPUL NEB ONE (11:18)
--- NOTE | 2018-02-05 11:25 | PDOC PROGRESS REPORT ---
Subjective-OB Progress Note for:: 02/05/18 Subjective: RN reported low O2 Sat 80s this am, Nasal can applied, off now and sat normal. CXR ordered. Pt doing well, no apparent distress She reports some coughing, sometimes feeling short of breath. Denies LINDSAY, reports + spots in vis field. Bleeding normal, voiding without difficulty, +flatus and regular diet. Physical Exam (OB) Vital Signs: Temp Pulse Resp BP Pulse Ox 98.6 F 66 18 119/68 96 02/05/18 03:46 02/05/18 03:46 02/05/18 03:46 02/05/18 03:46 02/05/18 03:46 Intake & Output 02/04/18 02/05/18 02/06/18 06:59 06:59 06:59 Intake Total 3142 1681.52 Output Total 1910 1285 Balance 1232 396.52 Weight 96.9 kg 97 kg - PIH/Pre-Eclampsia DTR's: 2 + Clonus: Negative Headache: Absent Epigastric Pain: No Visual Changes: Yes - Dressing Removed: No Incision: Dressing - Lochia Lochia Amount: Scant < 10 ml Lochia Color: Rubra/Red - Abdomen Description: Soft, Round Hernia Present: No Fundal Description: Firm Fundal Height: u/u - u/2 - Respiratory Respiratory Status: No respiratory distress Chest Status: Nontender Breath sounds: Fine Crackle - Rt side clear, LL Lobe with crackles Chest Palpation: Normal - Extremities Upper extremity: Normal inspection Lower extremities: Normal inspection Foot: Normal Extremities Note: 2+ DTR bilaterally, no clonus, neg homans sign, Wearing Teds - Neurological Cognition: Normal Orientation: AAOx4 Speech: Normal Objective-Diagnostic Laboratory: 02/05/18 06:27 02/05/18 06:27 02/04/18 02/04/18 02/04/18 11:38 11:38 12:00 WBC 12.4 H RBC 3.61 L Hgb 11.1 L Hct 32.0 L MCV 89 MCH 30.7 MCHC 34.7 RDW 13.3 Plt Count 118 L Seg Neutrophils % Lymphocytes % Monocytes % Eosinophils % Basophils % Absolute Neutrophils Absolute Lymphocytes Absolute Monocytes Absolute Eosinophils Absolute Basophils Carbonic Acid 0.92 L HCO3/H2CO3 Ratio 22:1 ABG pH 7.46 H ABG pCO2 30.5 L ABG pO2 85.8 ABG HCO3 21.0 ABG O2 Saturation 97.0 ABG Base Excess -2.0 FiO2 30% Sodium 131.7 L Potassium 4.3 Chloride 105 Carbon Dioxide 19 L Anion Gap 8 BUN 6 L Creatinine 0.62 Est GFR ( Amer) > 60 Est GFR (Non-Af Amer) > 60 Glucose 77 Uric Acid 5.2 Calcium 6.3 L* Magnesium Total Bilirubin 0.4 AST 52 H ALT 29 Alkaline Phosphatase 159 H Total Protein 5.4 L Albumin 2.5 L 02/05/18 02/05/18 06:27 06:27 WBC 10.4 RBC 3.33 L Hgb 10.4 L Hct 29.7 L MCV 89 MCH 31.2 MCHC 35.0 RDW 13.4 Plt Count 153 Seg Neutrophils % 75.8 Lymphocytes % 18.6 Monocytes % 5.2 Eosinophils % 0.2 Basophils % 0.2 Absolute Neutrophils 7.9 Absolute Lymphocytes 1.9 Absolute Monocytes 0.5 Absolute Eosinophils 0.0 Absolute Basophils 0.0 Carbonic Acid HCO3/H2CO3 Ratio ABG pH ABG pCO2 ABG pO2 ABG HCO3 ABG O2 Saturation ABG Base Excess FiO2 Sodium 137.8 Potassium 4.2 Chloride 111 H Carbon Dioxide 22 Anion Gap 5 BUN 8 Creatinine 0.64 Est GFR ( Amer) > 60 Est GFR (Non-Af Amer) > 60 Glucose 92 Uric Acid Calcium 7.1 L Magnesium 3.0 H Total Bilirubin AST ALT Alkaline Phosphatase Total Protein Albumin Assessment and Plan(PN) - Assessment and Plan (1) Eclampsia Is this a current diagnosis for this admission?: Yes (2) Status post primary low transverse section Is this a current diagnosis for this admission?: Yes Plan:: Consulted with Dr. Lee regarding CXR report, to start pt on Duonebs Q6h, CBC in AM - Time Spent with Patient Time with patient: Less than 15 minutes Medications reviewed and adjusted accordingly: Yes - Disposition Anticipated Discharge: Home Within: within 24 hours, within 48 hours
--- NOTE | 2018-02-05 12:37 | PDOC PROGRESS REPORT ---
Subjective Progress Note for:: 02/05/18 Subjective:: The patient is seen sitting up at bedside. She has no new complaints. Reason For Visit: Physical Exam Vital Signs: Temp Pulse Resp BP Pulse Ox 98.9 F 102 H 16 129/93 H 98 02/05/18 11:41 02/05/18 11:49 02/05/18 11:49 02/05/18 11:41 02/05/18 11:49 Intake & Output 02/04/18 02/05/18 02/06/18 06:59 06:59 06:59 Intake Total 3142 1681.52 Output Total 1910 1285 Balance 1232 396.52 Weight 96.9 kg 97 kg General appearance: PRESENT: no acute distress, cooperative, well-developed, well-nourished Respiratory exam: PRESENT: other - No increased work of breathing.. ABSENT: rales, rhonchi, wheezes Cardiovascular exam: PRESENT: RRR. ABSENT: gallop, rubs, systolic murmur Pulses: PRESENT: normal dorsalis pedis pul GI/Abdominal exam: PRESENT: firm. ABSENT: hernia, mass, organolmegaly, tenderness Extremities exam: ABSENT: clubbing, pedal edema, tenderness Musculoskeletal exam: ABSENT: deformity, dislocation, normal inspection Neurological exam: PRESENT: alert, awake, oriented to person, oriented to place , oriented to time, oriented to situation, CN II-XII grossly intact. ABSENT: motor sensory deficit Psychiatric exam: PRESENT: appropriate affect, normal mood Skin exam: PRESENT: dry, intact, warm Results Laboratory Results: 02/05/18 06:27 02/05/18 06:27 02/04/18 02/05/18 02/05/18 11:38 06:27 06:27 WBC 10.4 RBC 3.33 L Hgb 10.4 L Hct 29.7 L MCV 89 MCH 31.2 MCHC 35.0 RDW 13.4 Plt Count 153 Seg Neutrophils % 75.8 Lymphocytes % 18.6 Monocytes % 5.2 Eosinophils % 0.2 Basophils % 0.2 Absolute Neutrophils 7.9 Absolute Lymphocytes 1.9 Absolute Monocytes 0.5 Absolute Eosinophils 0.0 Absolute Basophils 0.0 Sodium 131.7 L 137.8 Potassium 4.3 4.2 Chloride 105 111 H Carbon Dioxide 19 L 22 Anion Gap 8 5 BUN 6 L 8 Creatinine 0.62 0.64 Est GFR ( Amer) > 60 > 60 Est GFR (Non-Af Amer) > 60 > 60 Glucose 77 92 Uric Acid 5.2 Calcium 6.3 L* 7.1 L Magnesium 3.0 H Total Bilirubin 0.4 AST 52 H ALT 29 Alkaline Phosphatase 159 H Total Protein 5.4 L Albumin 2.5 L Impressions: Head CT 02/03/18 00:00 IMPRESSION: 1. 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 No evidence, however, of acute abnormality. No hemorrhage or mass or shift or suggestion of hydrocephalus. 2. Chronic paranasal sinus disease. KUB X-Ray 02/03/18 00:00 IMPRESSION: 1. Appropriate endotracheal and nasogastric tubes. Chest X-Ray 02/05/18 00:00 IMPRESSION: Left lower lobe atelectasis or early pneumonia. Assessment & Plan - Diagnosis (1) Eclampsia Is this a current diagnosis for this admission?: Yes Plan: Blood pressures are in normal range and there have been no more seizure activity. (2) Malignant hypertension Is this a current diagnosis for this admission?: Yes Plan: Resolved. The patient is currently receiving PO atenolol. Diastolic BP is still a bed high as is heart rate. I will increase dose to 25 mg bid. (3) Respiratory failure Qualifiers: Chronicity: acute Respiratory failure complication: hypoxia Qualified Code(s): J96.01 - Acute respiratory failure with hypoxia Is this a current diagnosis for this admission?: Yes Plan: As per pulmonology. the patient has been extubated yesterday. She is having no respiratory distress. (4) Status post primary low transverse section Is this a current diagnosis for this admission?: Yes Plan: Noted. As per primary. - Time Time Spent with patient: 35 or more minutes Medications reviewed and adjusted accordingly: Yes
[2018-02-05] MEDS: IPRATROPIUM/ALBUTEROL 0.5-2.5 MG/3 ML AMPUL NEB SCH ×2 (14:15→20:32)
[2018-02-06] MEDS ORDERED: IPRATROPIUM/ALBUTEROL 0.5-2.5 MG/3 ML AMPUL NEB ONE (04:07)
[2018-02-06] MEDS: IPRATROPIUM/ALBUTEROL 0.5-2.5 MG/3 ML AMPUL NEB SCH ×2 (08:20→13:44)
[2018-02-06] MEDS: IBUPROFEN 800 MG TABLET PO SCH ×2 (09:03→12:25)
--- NOTE | 2018-02-06 09:18 | PDOC PROGRESS REPORT ---
Subjective-OB Progress Note for:: 02/06/18 Subjective: Sitting on side of bed, FOB encouraging her to use inspirometer, no c/o, wants to go home, eating well, voiding, no SOB Physical Exam (OB) Vital Signs: Temp Pulse Resp BP Pulse Ox 98.0 F 107 H 18 127/93 H 85 L 02/06/18 03:33 02/06/18 03:33 02/06/18 03:33 02/06/18 03:33 02/06/18 03:33 Intake & Output 02/05/18 02/06/18 02/07/18 06:59 06:59 06:59 Intake Total 1681.52 Output Total 1285 Balance 396.52 Weight 97 kg - PIH/Pre-Eclampsia DTR's: 1 + Clonus: Negative Headache: Absent Epigastric Pain: No Visual Changes: No - Dressing Removed: Yes Incision: Well Approximated Closure Type: Steri-Strips - Lochia Lochia Amount: Small 10-25 ml Lochia Color: Rubra/Red - Abdomen Description: Soft, Round Hernia Present: No Fundal Description: Firm, Midline Fundal Height: u/u - u/2 Objective-Diagnostic Laboratory: 02/05/18 06:27 02/05/18 06:27 Assessment and Plan(PN) - Assessment and Plan (1) Anemia Qualifiers: Other causes of anemia: acute posthemorrhagic Is this a current diagnosis for this admission?: Yes (2) sputum culture positive for Haemophilus Is this a current diagnosis for this admission?: Yes (3) Malignant hypertension Is this a current diagnosis for this admission?: Yes (4) Respiratory failure Qualifiers: Chronicity: acute Respiratory failure complication: hypoxia Qualified Code(s): J96.01 - Acute respiratory failure with hypoxia Is this a current diagnosis for this admission?: Yes (5) Status post primary low transverse section Is this a current diagnosis for this admission?: Yes (6) Eclampsia Is this a current diagnosis for this admission?: Yes - Time Spent with Patient Time with patient: Less than 15 minutes Medications reviewed and adjusted accordingly: Yes - Disposition Anticipated Discharge: Home Within: within 48 hours - Dr. Casey started pt on antibiotics, sputum culture + for Haemophilus flu, FOB upset pt is not going home today, explanation given
[2018-02-06 09:19] LABS: ABSOLUTE LYMPHOCYTES (AUTO) 1.6 10^3/uL (0.5-4.7); ABSOLUTE MONOCYTES (AUTO) 0.7 10^3/uL (0.1-1.4); ABSOLUTE NEUT (AUTO) 8.7 10^3/uL (1.7-8.2); BASOPHILS % (AUTO) 0.3 % (0-2); EOSINOPHILS % (AUTO) 0.3 % (0-6); HEMATOCRIT 29.9 % (36.0-47.0); LYMPHOCYTES % (AUTO) 14.8 % (13-45); MEAN CORPUSCULAR HEMOGLOBIN 30.2 pg (27.0-33.4); MEAN CORPUSCULAR HGB CONC 33.3 g/dL (32.0-36.0); MEAN CORPUSCULAR VOLUME 91 fl (80-97); PLATELET COUNT 163 10^3/uL (150-450); RED CELL DISTRIBUTION WIDTH 13.7 % (11.5-14.0); SEGMENTED NEUTROPHILS % (AUTO) 78.6 % (42-78); TOTAL CELLS COUNTED % (AUTO) 100 %; WHITE BLOOD COUNT 11.1 10^3/uL (4.0-10.5)
[2018-02-06] MEDS: ATENOLOL 50 MG TABLET PO SCH (09:21)
[2018-02-06] MEDS: DOCUSATE SODIUM 100 MG CAPSULE PO SCH (09:22)
[2018-02-06] MEDS ORDERED: HYDROCHLOROTHIAZIDE 25 MG TABLET PO SCH (10:00)
[2018-02-06] MEDS ORDERED: MEASLES,MUMPS&RUBELLA VACC/PF 0.5 ML VIAL SUBCUT PRN (10:00)
[2018-02-06] MEDS ORDERED: DIPH/PERTUSS(ACELL)/TETANUS VAC/PF 0.5 ML SYR (>=10YO) IM PRN (10:00)
[2018-02-06] MEDS: PRENATAL VITAMIN W DHA CAPSULE PO SCH (10:30)
[2018-02-06] MEDS ORDERED: ATENOLOL 50 MG TABLET PO SCH (11:00)
[2018-02-06] MEDS ORDERED: ERYTHROMYCIN BASE 250 MG TABLET PO SCH (12:00)
--- NOTE | 2018-02-06 13:32 | PDOC PROGRESS REPORT ---
Subjective Progress Note for:: 02/06/18 Subjective:: The patient is resting comfortably. No acute distress. Reason For Visit: Physical Exam Vital Signs: Temp Pulse Resp BP Pulse Ox 98.0 F 80 17 127/98 H 98 02/06/18 11:28 02/06/18 11:28 02/06/18 11:28 02/06/18 11:28 02/06/18 11:28 Intake & Output 02/05/18 02/06/18 02/07/18 06:59 06:59 06:59 Intake Total 1681.52 Output Total 1285 Balance 396.52 Weight 97 kg General appearance: PRESENT: no acute distress, cooperative, well-developed, well-nourished Respiratory exam: PRESENT: other - No increased work of breathing. No wheezes, rales, or rhonchi. Cardiovascular exam: PRESENT: RRR. ABSENT: gallop, rubs, systolic murmur GI/Abdominal exam: PRESENT: firm, other - Fundal height appropriate. Fundus is firm.. ABSENT: hernia, mass, tenderness Extremities exam: ABSENT: clubbing, pedal edema, tenderness Musculoskeletal exam: PRESENT: normal inspection. ABSENT: deformity, dislocation, tenderness Neurological exam: PRESENT: alert, awake, oriented to person, oriented to place , oriented to time, oriented to situation, CN II-XII grossly intact. ABSENT: motor sensory deficit Psychiatric exam: PRESENT: appropriate affect, normal mood Skin exam: PRESENT: dry, intact, warm Results Laboratory Results: 02/06/18 06:41 02/05/18 06:27 02/06/18 06:41 WBC 11.1 H RBC 3.30 L Hgb 10.0 L Hct 29.9 L MCV 91 MCH 30.2 MCHC 33.3 RDW 13.7 Plt Count 163 Seg Neutrophils % 78.6 H Lymphocytes % 14.8 Monocytes % 6.0 Eosinophils % 0.3 Basophils % 0.3 Absolute Neutrophils 8.7 H Absolute Lymphocytes 1.6 Absolute Monocytes 0.7 Absolute Eosinophils 0.0 Absolute Basophils 0.0 02/04/18 11:00 Tracheal Aspirate Gram Stain - Final 02/04/18 11:00 Tracheal Aspirate Sputum Culture - Final Haemophilus Influenzae Normal Rox Impressions: Head CT 02/03/18 00:00 IMPRESSION: 1. 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 No evidence, however, of acute abnormality. No hemorrhage or mass or shift or suggestion of hydrocephalus. 2. Chronic paranasal sinus disease. KUB X-Ray 02/03/18 00:00 IMPRESSION: 1. Appropriate endotracheal and nasogastric tubes. Chest X-Ray 02/05/18 00:00 IMPRESSION: Left lower lobe atelectasis or early pneumonia. Assessment & Plan - Diagnosis (1) Eclampsia Is this a current diagnosis for this admission?: Yes Plan: Blood pressures are in normal range and there have been no more seizure activity. (2) Malignant hypertension Is this a current diagnosis for this admission?: Yes Plan: Resolved. The patient is currently receiving PO atenolol. Diastolic BP is still a bed high as is heart rate. I will increase dose to 25 mg bid. (3) Respiratory failure Qualifiers: Chronicity: acute Respiratory failure complication: hypoxia Qualified Code(s): J96.01 - Acute respiratory failure with hypoxia Is this a current diagnosis for this admission?: Yes Plan: As per pulmonology. the patient has been extubated yesterday. She is having no respiratory distress. Sputum is positive for H. Flu. (4) Status post primary low transverse section Is this a current diagnosis for this admission?: Yes Plan: Noted. As per primary. - Time Time Spent with patient: 25-34 minutes Medications reviewed and adjusted accordingly: Yes Anticipated discharge: Home
--- NOTE | 2018-02-06 14:11 | PDOC DISCHARGE SUMMARY ---
Final Diagnosis Discharge Date: 02/06/18 - Final Diagnosis (1) Anemia Is this a current diagnosis for this admission?: Yes (2) sputum culture positive for Haemophilus Is this a current diagnosis for this admission?: Yes (3) Malignant hypertension Is this a current diagnosis for this admission?: Yes (4) Respiratory failure Is this a current diagnosis for this admission?: Yes (5) Status post primary low transverse section Is this a current diagnosis for this admission?: Yes (6) Eclampsia Is this a current diagnosis for this admission?: Yes Discharge Data - Discharge Medication Home Medications: No Home Medications 02/04/18 Gestational Age: 35 Reason(s) for Admission: Ceasarean Section-Primary Admission Note: Pre-eclampsia/Eclampsia Procedures: NST, Ultrasound Intrapartum Procedure(s): : Low Cervical, Transverse - Diagnosis Test Laboratory: Temp Pulse Resp BP Pulse Ox 98.0 F 81 16 127/98 H 97 02/06/18 11:28 02/06/18 13:44 02/06/18 13:44 02/06/18 11:28 02/06/18 13:44 02/03/18 02/03/18 02/04/18 14:15 15:37 04:06 RBC 3.75 3.49 L Hgb 11.3 L 10.7 L Hct 33.2 L 31.0 L Urine Opiates Screen UNCONFIRMED POSITIVE 02/04/18 02/05/18 02/06/18 11:38 06:27 06:41 RBC 3.61 L 3.33 L 3.30 L Hgb 11.1 L 10.4 L 10.0 L Hct 32.0 L 29.7 L 29.9 L Urine Opiates Screen - Discharge information/Instructions Discharge Activity: Activity As Tolerated, No Lifting Over 10 Pounds, No Lifting /Push/Pulling, Pelvic Rest Discharge Diet: As Tolerated, Regular Disposition: AGAINST MEDICAL ADVICE Follow up with: [facility] in: 3, Days - pt to be seen Saturday in office, discharged the need to stay another 24 hours, but pt and hsb insists she be discharged. will sign out AMA, S&S to report reviewed
--- NOTE | 2018-02-06 14:17 | PDOC DISCHARGE SUMMARY ---
Final Diagnosis Discharge Date: 02/06/18 - Final Diagnosis (1) Anemia Is this a current diagnosis for this admission?: Yes (3) Malignant hypertension Is this a current diagnosis for this admission?: Yes (4) Respiratory failure Is this a current diagnosis for this admission?: Yes (5) Status post primary low transverse section Is this a current diagnosis for this admission?: Yes (6) Eclampsia Is this a current diagnosis for this admission?: Yes Discharge Data - Discharge Medication Prescriptions: Oxycodone HCl/Acetaminophen [Percocet 5-325 mg Tablet] 1 tab PO Q4HP PRN #30 tablet PRN Reason: Erythromycin Base [Erythrocin Base 250 mg Tablet] 500 mg PO MEALSHS #30 tablet Ibuprofen [Motrin 800 mg Tablet] 800 mg PO Q6 #30 tablet Home Medications: Erythromycin Base [Erythrocin Base 250 mg Tablet] 500 mg PO MEALSHS #30 tablet 02/06/18 Ibuprofen [Motrin 800 mg Tablet] 800 mg PO Q6 #30 tablet 02/06/18 Oxycodone HCl/Acetaminophen [Percocet 5-325 mg Tablet] 1 tab PO Q4HP PRN #30 tablet 02/06/18 Gestational Age: 35 Reason(s) for Admission: Ceasarean Section-Primary, [facility] Admission Note: eclampsia Procedures: NST, Ultrasound Intrapartum Procedure(s): : Low Cervical, Transverse Intrapartum Procedure Note: Eclampsia, Intubated in ICU - Diagnosis Test Laboratory: Temp Pulse Resp BP Pulse Ox 98.0 F 81 16 127/98 H 97 02/06/18 11:28 02/06/18 13:44 02/06/18 13:44 02/06/18 11:28 02/06/18 13:44 02/03/18 02/03/18 02/04/18 14:15 15:37 04:06 RBC 3.75 3.49 L Hgb 11.3 L 10.7 L Hct 33.2 L 31.0 L Urine Opiates Screen UNCONFIRMED POSITIVE 02/04/18 02/05/18 02/06/18 11:38 06:27 06:41 RBC 3.61 L 3.33 L 3.30 L Hgb 11.1 L 10.4 L 10.0 L Hct 32.0 L 29.7 L 29.9 L Urine Opiates Screen - Discharge information/Instructions Discharge Activity: Activity As Tolerated, No Lifting Over 10 Pounds, No Lifting /Push/Pulling, Pelvic Rest Discharge Diet: As Tolerated, Regular Disposition: AGAINST MEDICAL ADVICE Follow up with: [facility] in: 3, Days - pt to be seen Saturday in office, discharged the need to stay another 24 hours, but pt and hsb insists she be discharged. will sign out AMA, S&S to report reviewed
[2018-02-06 14:21] VITALS: BP 119/68
== END 2018-02-06 15:40 | disposition left against medical advice (07) | DRG 765 ==
LOC: ER 11:24 → LR 11:50 → ICU 13:10 → 2S 02-04 15:50
PROVIDERS: ADMIT Student in an Organized Health Care Education/Training Program; ATTEND Student in an Organized Health Care Education/Training Program
PROC: 10D00Z1 Extraction of Products of Conception, Low, Open Approach (ICD-10-PCS; principal; 2018-02-03)
PROC: 3E0F7GC Introduction of Other Therapeutic Substance into Respiratory Tract, Via Natural or Artificial Opening (ICD-10-PCS; 2018-02-03)
PROC: 4A1HXCZ Monitoring of Products of Conception, Cardiac Rate, External Approach (ICD-10-PCS; 2018-02-03)
PROC: 5A1935Z Respiratory Ventilation, Less than 24 Consecutive Hours (ICD-10-PCS; 2018-02-03)
PROC: 0BH17EZ Insertion of Endotracheal Airway into Trachea, Via Natural or Artificial Opening (ICD-10-PCS; 2018-02-03)
DX: O99.513 Diseases of the respiratory system complicating pregnancy, third trimester (principal); J96.01 Acute respiratory failure with hypoxia; D62 Acute posthemorrhagic anemia; O99.02 Anemia complicating childbirth; O15.1 Eclampsia complicating labor; O60.14X0 Preterm labor third trimester with preterm delivery third trimester, not applicable or unspecified; B96.3 Hemophilus influenzae [H. influenzae] as the cause of diseases classified elsewhere; K21.9 Gastro-esophageal reflux disease without esophagitis; O99.613 Diseases of the digestive system complicating pregnancy, third trimester; O99.343 Other mental disorders complicating pregnancy, third trimester; F32.9 Major depressive disorder, single episode, unspecified; O45.93 Premature separation of placenta, unspecified, third trimester; Z78.1 Physical restraint status; Z82.49 Family history of ischemic heart disease and other diseases of the circulatory system; Z83.6 Family history of other diseases of the respiratory system; Z82.3 Family history of stroke; Z83.3 Family history of diabetes mellitus; Z3A.35 35 weeks gestation of pregnancy; Z37.0 Single live birth
CPT/HCPCS: 1961; 36415; 36600; 70450; 71045; 71046; 74018; 80048; 80053; 80307; 82803; 82962; 83615; 83735; 84550; 85025; 85027; 85362; 85384; 85610; 85730; 86850; 86900; 86901; 87070; 87077; 87205; 88307; 94002; 94003; 94640; 94799; 99285; J0360; J0610; J0690; J1170; J1885; J2250; J2590; J2704; J3475; J3490; J7120; J7620

== ENCOUNTER 2020-03-11 20:55 | Outpatient (CLI) | payer MEDICAID ==
[2020-03-11 21:51] LABS: APPEARANCE,URINE SLIGHTLY-CLOUDY; BILIRUBIN,URINE NEGATIVE (NEGATIVE); COLOR,URINE YELLOW; GLUCOSE, URINE NEGATIVE (NEGATIVE); KETONES,URINE NEGATIVE (NEGATIVE); LEUKOCYTE ESTERASE,URINE SMALL (NEGATIVE); NITRITE,URINE NEGATIVE (NEGATIVE); PROTEIN,URINE NEGATIVE (NEGATIVE); URINE SPECIFIC GRAVITY 1.006; UROBILINOGEN,URINE NEGATIVE mg/dL (<2.0)
[2020-03-11 21:57] LABS: URINE AMPHETAMINES SCREEN NEGATIVE; URINE BARBITURATES SCREEN NEGATIVE; URINE BENZODIAZEPINES SCREEN NEGATIVE; URINE COCAINE SCREEN NEGATIVE; URINE MARIJUANA (THC) SCREEN NEGATIVE; URINE METHADONE SCREEN NEGATIVE; URINE PHENCYCLIDINE SCREEN NEGATIVE
[2020-03-11 22:04] LABS: ABSOLUTE MONOCYTES (AUTO) 0.4 10^3/uL (0.1-1.4); ABSOLUTE NEUT (AUTO) 4.1 10^3/uL (1.7-8.2); BASOPHILS % (AUTO) 0.5 % (0-2); EOSINOPHILS % (AUTO) 0.6 % (0-6); HEMATOCRIT 25.6 % (36.0-47.0); HEMOGLOBIN 8.2 g/dL (12.0-15.5); LYMPHOCYTES % (AUTO) 29.9 % (13-45); MEAN CORPUSCULAR HEMOGLOBIN 21.2 pg (27.0-33.4); MEAN CORPUSCULAR HGB CONC 32.1 g/dL (32.0-36.0); MEAN CORPUSCULAR VOLUME 66 fl (80-97); MONOCYTES % (AUTO) 6.7 % (3-13); PLATELET COUNT 187 10^3/uL (150-450); RED BLOOD COUNT 3.88 10^6/uL (3.72-5.28); RED CELL DISTRIBUTION WIDTH 17.4 % (11.5-14.0); SEGMENTED NEUTROPHILS % (AUTO) 62.3 % (42-78); TOTAL CELLS COUNTED % (AUTO) 100 %; WHITE BLOOD COUNT 6.6 10^3/uL (4.0-10.5)
[2020-03-11 22:36] LABS: BACTERIA (WET MOUNT) 4+ BACTERIA SEEN; EPITHELIALS (WET MOUNT) 3+ EPITHELIALS SEEN; T.VAGINALIS (WET MOUNT) NO TRICHOMONAS SEEN; WBCS (WET MOUNT) 1+ WBCS SEEN; YEAST (WET MOUNT) BUDDING YEAST SEEN
[2020-03-11] MEDS ORDERED: FLUCONAZOLE 100 MG TABLET PO ONE (23:30)
[2020-03-11] MEDS ORDERED: FLUCONAZOLE 100 MG TABLET ONE ×2 (23:33→23:37)
[2020-03-11 23:52] LABS: CHLAM PCR NOT DETECTED (NOT DETECT)
--- NOTE | 2020-03-12 00:18 | Non Stress Test Report ---
Non Stress Test Datetime Report Generated by CPN: 03/12/2020 00:18 DEMOGRAPHIC EGA NST: 38.2 INDICATION Indication for Study (NST) Other: LC MONITORING Monitor Explained: Monitor Explained; Test Explained; Patient Verbalized Understanding Time on Monitor: 03/11/2020 21:20 Time off Monitor: 03/11/2020 23:30 NST Duration: 130 NST INTERVENTIONS NST Interventions: None Physician Notified NST: Dr. Goodman BABY A: [id number] BABY A Movement : Present Contraction Frequency : occasional FHR Baseline : 125 Accelerations : 15X15 Decelerations : None Variability : Moderate 6-25bpm NST Review: Meets Criteria for Reactive NST NST Review and Verified By : yEal Barber RN NSJuana Results: Reactive NST REPORT Report Trigger: Send Report
[2020-03-13 07:37] LABS: HEPATITIS C VIRUS AB <0.1 s/co ratio (0.0-0.9)
[2020-03-13 11:37] LABS: HEPATITS B SURFACE ANTIGEN Negative (Negative)
== END 2020-03-12 00:10 | disposition home or self-care (01) ==
LOC: LC 20:55
PROVIDERS: ATTEND Student in an Organized Health Care Education/Training Program
DX: O26.893 Other specified pregnancy related conditions, third trimester (principal); R10.9 Unspecified abdominal pain; Z3A.38 38 weeks gestation of pregnancy
CPT/HCPCS: 59025; 86900; 86901; 36415; 87210; 86850; 84443; 85025; 87635; 86762; 86592; 81001; 87081; 87340; 86701; 80307; 87491; 87591; 86803; 86804; J3490; C9803

== ENCOUNTER 2020-03-12 03:27 | Outpatient (CLI) | payer MEDICAID ==
[2020-03-12 05:12] LABS: ALBUMIN 3.3 g/dL (3.5-5.0); ALKALINE PHOSPHATASE 223 U/L (38-126); ANION GAP 10 (5-19); ASPARTATE AMINO TRANSFERASE 25 U/L (14-36); BILIRUBIN,DIRECT 0.2 mg/dL (0.0-0.4); BILIRUBIN,TOTAL 0.4 mg/dL (0.2-1.3); BLOOD UREA NITROGEN 7 mg/dL (7-20); CALCIUM 8.5 mg/dL (8.4-10.2); CARBON DIOXIDE 20 mmol/L (22-30); CHLORIDE 108 mmol/L (98-107); GLUCOSE 131 mg/dL (75-110); POTASSIUM 3.3 mmol/L (3.6-5.0); TOTAL PROTEIN 6.3 g/dL (6.3-8.2); URIC ACID 3.9 mg/dL (2.5-6.2)
[2020-03-12 06:21] LABS: APPEARANCE,URINE CLEAR; BILIRUBIN,URINE NEGATIVE (NEGATIVE); COLOR,URINE YELLOW; GLUCOSE, URINE >=500 mg/dL (NEGATIVE); KETONES,URINE NEGATIVE (NEGATIVE); LEUKOCYTE ESTERASE,URINE TRACE (NEGATIVE); NITRITE,URINE NEGATIVE (NEGATIVE); PROTEIN,URINE NEGATIVE (NEGATIVE); URINE SPECIFIC GRAVITY 1.011; UROBILINOGEN,URINE NEGATIVE mg/dL (<2.0)
[2020-03-12 06:34] LABS: URINE AMPHETAMINES SCREEN NEGATIVE; URINE BARBITURATES SCREEN NEGATIVE; URINE BENZODIAZEPINES SCREEN NEGATIVE; URINE COCAINE SCREEN NEGATIVE; URINE MARIJUANA (THC) SCREEN NEGATIVE; URINE METHADONE SCREEN NEGATIVE; URINE PHENCYCLIDINE SCREEN NEGATIVE
[2020-03-12 06:38] LABS: UR PRO/CREAT RATIO RESULT 0.1 mg/mg (0.0-0.2); URINE CREATININE 89.8 mg/dL (16-327); URINE PROTEIN 6.8 mg/dL (<12)
--- NOTE | 2020-03-12 07:13 | Non Stress Test Report ---
Non Stress Test Datetime Report Generated by CPN: 03/12/2020 07:13 DEMOGRAPHIC EGA NST: 38.3 INDICATION Indication for Study (NST) Other: >32 weeks MONITORING Monitor Explained: Monitor Explained; Test Explained; Patient Verbalized Understanding Time on Monitor: 03/12/2020 04:44 Time off Monitor: 03/12/2020 05:15 NST Duration: 31 NST INTERVENTIONS NST Interventions: PO Hydration Physician Notified NST: Dr. Goodman BABY A Movement : Present Contraction Frequency : Rare FHR Baseline : 125 Accelerations : 15X15 Decelerations : None Variability : Moderate 6-25bpm NST Review: Meets Criteria for Reactive NST NST Review and Verified By : Eyal Barber RNT Results: Reactive NST REPORT Report Trigger: Send Report
== END 2020-03-12 07:26 | disposition home or self-care (01) ==
LOC: LC 03:27
PROVIDERS: ATTEND Student in an Organized Health Care Education/Training Program
DX: O26.893 Other specified pregnancy related conditions, third trimester (principal); R10.9 Unspecified abdominal pain; Z3A.38 38 weeks gestation of pregnancy
CPT/HCPCS: 36415; 59025; 80053; 80307; 81001; 82570; 83615; 84156; 84550; 94760

== ENCOUNTER 2020-03-13 11:09 | Outpatient (CLI) | payer MEDICAID ==
[2020-03-13 12:21] LABS: APPEARANCE,URINE CLEAR; BILIRUBIN,URINE NEGATIVE (NEGATIVE); COLOR,URINE STRAW; GLUCOSE, URINE NEGATIVE (NEGATIVE); KETONES,URINE NEGATIVE (NEGATIVE); LEUKOCYTE ESTERASE,URINE NEGATIVE (NEGATIVE); NITRITE,URINE NEGATIVE (NEGATIVE); PROTEIN,URINE NEGATIVE (NEGATIVE); URINE SPECIFIC GRAVITY 1.006; UROBILINOGEN,URINE NEGATIVE mg/dL (<2.0)
[2020-03-13 12:36] LABS: URINE AMPHETAMINES SCREEN NEGATIVE; URINE BARBITURATES SCREEN NEGATIVE; URINE BENZODIAZEPINES SCREEN NEGATIVE; URINE COCAINE SCREEN NEGATIVE; URINE MARIJUANA (THC) SCREEN NEGATIVE; URINE METHADONE SCREEN NEGATIVE; URINE PHENCYCLIDINE SCREEN NEGATIVE
== END 2020-03-13 12:35 | disposition home or self-care (01) ==
LOC: LC 11:09
PROVIDERS: ATTEND Obstetrics & Gynecology Gynecology
DX: O47.1 False labor at or after 37 completed weeks of gestation (principal); Z3A.38 38 weeks gestation of pregnancy
CPT/HCPCS: 59025; 80307; 81005

== ENCOUNTER 2020-03-14 16:32 | Inpatient (IN) | payer MEDICAID ==
--- NOTE | 2020-03-14 16:55 | Admission Physical ---
Datetime Report Generated by CPN: 03/14/2020 16:55 CURRENT ADMISSION Chief Complaint: Uterine Contractions Admit Impression : Term, Intrauterine ; Active Labor Admit Impression- Other: Previous C/s x 2 Admit Plan: Admit to Unit; Initiate Section Protocol ALLERGIES Medication Allergies: No Known Allergies (03/12/2020) Latex: No Latex Allergies OBSTETRICAL HISTORY EDC: 03/23/2020 00:00 : 3 Para: 2 Term: 2 : 0 SAB: 0 IAB: 0 Ectopic: 0 Livin Cesareans: 2 Multiple Births: 0 Gestational Diabetes: No Rh Sensitization: No Incompetent Cervix: No ADA: No Infertility: No ART Treatment: No Uterine Anomaly: No IUGR: No Hx Previous C/S: Yes Macrosomia: No Hx Loss/Stillborn: No PIH: Yes Hx : No Placenta Previa/Abruption: Yes Depression/PP Depression: Yes PTL/PROM: Yes Post Hemorrhage: Yes Current Procedures: Ultrasound Obstetrical History Comments: G1: G2: G3: current SEE RECORDS Alcohol: No Marijuana : No Cocaine: No Other Illicit Drugs: No Cigarettes: Former Smoker. [id number] Cigarette Comments: stopped when found out in 2017 MEDICAL HISTORY Diabetes: No Blood Transfusion: No Pulmonary Disease (Asthma, TB): No Breast Disease: No Hypertension: Yes Mainframe Systems Administrator Surgery: No Heart Disease: No Hosp/Surgery: Yes Autoimmune Disorder: No Anesthetic Complications: No Kidney Disease: Yes Abnormal Pap Smear: No Neuro/Epilepsy: No Psychiatric Disorders: Yes Other Medical Diseases: No Hepatitis/Liver Disease: No Significant Family History: No Varicosities/Phlebitis: No Trauma/Violence : Unknown Thyroid Dysfunction: No PHYSICAL EXAM General: Normal HEENT: Normal Neurologic: Normal Thyroid: Normal Heart: Normal Lungs: Normal Breast: Normal Back: Normal Abdomen: Normal Genitourinary Exam: Normal Extremities: Normal DTRs: Normal Pelvic Type: Adequate Vital Signs: Reviewed FETUS A EGA: 38.5 Monitoring: External US FHR- Baseline: 135 Variability: Moderate 6-25bpm Accelerations: 15X15 Decelerations: None Admit Comment: Pt presents to L_D unit, VE in the office, pt was 5 cm and bladimir. Prev c/s x 2 for Repeat Section, 38 weeks. Pt last ate at noon today. Hx of Eclampsia w/ prior . Dr Lee aware of patients status and agrees with plan to do Repeat Section w/ BTL. PLANS FOR LABOR AND DELIVERY Labor and Delivery: None Pain Management: Spinal Feeding Preference: Formula INFORMED CONSENT Assignment: Partha Lee MD Signature: with User ID: Gabbi : with User ID: Gabbi
[2020-03-14] MEDS ORDERED: HYDROMORPHONE HCL INJ/PF 2 MG/ML AMPULE IV PRN (17:18)
[2020-03-14] MEDS ORDERED: RINGERS SOLUTION,LACTATED 1,000 ML IV PRN (17:18)
[2020-03-14] MEDS ORDERED: ACETAMINOPHEN 325 MG TABLET PO PRN (17:18)
[2020-03-14] MEDS ORDERED: OXYCODONE-ACETAMINOPHEN 5-325 MG TABLET PO PRN ×2 (17:18)
[2020-03-14] MEDS ORDERED: PROMETHAZINE HCL INJ 25 MG/1 ML VIAL IV PRN (17:18)
[2020-03-14] MEDS ORDERED: SIMETHICONE 80 MG TAB.CHEW PO PRN (17:18)
[2020-03-14] MEDS ORDERED: OXYTOCIN/0.9 % SODIUM CHLORIDE 30 UNIT/500 ML RTUINJ IV PRN (17:18)
[2020-03-14] MEDS ORDERED: ACETAMINOPHEN 1,000 MG/100 ML RTUPB IV PRN (17:18)
[2020-03-14] MEDS ORDERED: DIPH/PERTUSS(ACELL)/TETANUS VAC/PF 0.5 ML SYR (>=10YO) IM PRN (17:18)
[2020-03-14] MEDS ORDERED: MEASLES,MUMPS&RUBELLA VACC/PF 0.5 ML VIAL SUBCUT PRN (17:18)
[2020-03-14 17:25] LABS: APPEARANCE,URINE CLEAR; BILIRUBIN,URINE NEGATIVE (NEGATIVE); COLOR,URINE YELLOW; GLUCOSE, URINE NEGATIVE (NEGATIVE); KETONES,URINE 20 mg/dL (NEGATIVE); LEUKOCYTE ESTERASE,URINE NEGATIVE (NEGATIVE); NITRITE,URINE NEGATIVE (NEGATIVE); PROTEIN,URINE 30 mg/dL (NEGATIVE); URINE SPECIFIC GRAVITY 1.024; UROBILINOGEN,URINE NEGATIVE mg/dL (<2.0)
[2020-03-14] MEDS ORDERED: NORMAL SALINE 250 ML IV PRN ×2 (17:25)
[2020-03-14 17:37] LABS: URINE AMPHETAMINES SCREEN NEGATIVE; URINE BARBITURATES SCREEN NEGATIVE; URINE BENZODIAZEPINES SCREEN NEGATIVE; URINE COCAINE SCREEN NEGATIVE; URINE MARIJUANA (THC) SCREEN NEGATIVE; URINE METHADONE SCREEN NEGATIVE; URINE PHENCYCLIDINE SCREEN NEGATIVE
[2020-03-14] MEDS ORDERED: MIDAZOLAM 2 MG/2 ML INJ ONE (17:43)
[2020-03-14] MEDS ORDERED: GLYCOPYRROLATE INJ 0.4 MG/2 ML VIAL ONE (17:43)
[2020-03-14] MEDS ORDERED: FENTANYL CITRATE INJ/PF 100 MCG/2 ML AMPUL ONE (17:43)
[2020-03-14] MEDS ORDERED: KETOROLAC TROMETHAMINE INJ/PF 30 MG/1 ML SDV ONE (17:43)
[2020-03-14] MEDS ORDERED: OXYTOCIN 10 UNIT/ML VIAL ONE (17:43)
[2020-03-14] MEDS ORDERED: OXYTOCIN/0.9 % SODIUM CHLORIDE 30 UNIT/500 ML RTUINJ ONE (17:43)
[2020-03-14] MEDS ORDERED: ACETAMINOPHEN 1,000 MG/100 ML RTUPB IV ONE (17:44)
[2020-03-14] MEDS ORDERED: ONDANSETRON HCL INJ/PF 4 MG/2 ML SDV ONE (17:44)
[2020-03-14] MEDS ORDERED: CITRIC ACID/SODIUM CITRATE ORAL SOLN 15 ML UDCUP ONE (17:47)
[2020-03-14] MEDS ORDERED: CEFAZOLIN SODIUM 2 GM in DEXTROSE 5%-WATER 50 ML IV PRN (17:47)
[2020-03-14] MEDS ORDERED: CEFAZOLIN 2 GM/D5W RTU 2 GM/50 ML RTUPB IV ONE (17:47)
[2020-03-14 17:48] LABS: ABSOLUTE LYMPHOCYTES (AUTO) 1.6 10^3/uL (0.5-4.7); ABSOLUTE MONOCYTES (AUTO) 0.4 10^3/uL (0.1-1.4); ABSOLUTE NEUT (AUTO) 6.5 10^3/uL (1.7-8.2); BASOPHILS % (AUTO) 0.4 % (0-2); EOSINOPHILS % (AUTO) 0.3 % (0-6); HEMATOCRIT 28.7 % (36.0-47.0); HEMOGLOBIN 9.1 g/dL (12.0-15.5); LYMPHOCYTES % (AUTO) 18.4 % (13-45); MEAN CORPUSCULAR HEMOGLOBIN 20.8 pg (27.0-33.4); MEAN CORPUSCULAR HGB CONC 31.6 g/dL (32.0-36.0); MEAN CORPUSCULAR VOLUME 66 fl (80-97); PLATELET COUNT 215 10^3/uL (150-450); RED BLOOD COUNT 4.37 10^6/uL (3.72-5.28); SEGMENTED NEUTROPHILS % (AUTO) 75.9 % (42-78); TOTAL CELLS COUNTED % (AUTO) 100 %; WHITE BLOOD COUNT 8.6 10^3/uL (4.0-10.5)
--- NOTE | 2020-03-14 19:06 | Operative Report ---
Operative Report DATE OF SURGERY: 03/14/20 PREOPERATIVE DIAGNOSIS: Repeat in labor and patient desires tubal lig ation POSTOPERATIVE DIAGNOSIS: Same OPERATION: Repeat with a low transverse uterine incision and tubal ligation with Filshie clip application bilaterally SURGEON: LARRY BASS ANESTHESIA: Spinal TISSUE REMOVED OR ALTERED: Placenta COMPLICATIONS: None ESTIMATED BLOOD LOSS: 400 cc INTRAOPERATIVE FINDINGS: Viable infant. Meconium noted. Normal uterus tubes ovaries PROCEDURE: Patient was taken to the OR and placed in supine position after her spinal anesthesia. She is prepared and draped in sterile fashion. Becerra was placed for drainage of the bladder. Low transverse incision was made and carried down the level of the fascia. The fascial incision was made with knife and extended bilaterally with curved Fowler scissors. The fascia was off the rectus muscles using sharp and blunt dissection. The rectus muscles are in the midline. The peritoneum was entered without incident. Bladder blade was placed in uterine segment was identified. A low transverse incision was made creating a bladder flap. Bladder blade was placed low transverse uterine incision was made with the knife and extended with fingertips. The baby was delivered with some fundal pressure. Mouth and nose were suctioned free. The cord is doubly clamped and cut. Baby is passed off to the wastewater plant operator in attendance. The placenta was manually extracted with trailing membranes. The uterus was externalized wrapped in a moist lap sponge. Uterine contents wiped free. Uterus was closed with a running locking layer of 0 chromic suture using the second layer to imbricate the first completing a double layer closure of the uterus. The serosa was closed with a running 2-0 chromic stitch. The tubal ligation was carried out by placing Filshie clip across to each fallopian tube. The fallopian tubes were identified by the fimbria. The pelvis was irrigated and suctioned free of fluid the uterus was replaced in the abdomen. The abdominal wall peritoneum was closed with running 2-0 chromic stitch. Fascia was closed with a running 0 Vicryl in 2 segments. Janeen's layer was brought together with 0 plain gut stitch and the skin was closed with running subcuticular 4-0 undyed Vicryl stitch. The wound was dressed mother and baby did well.
[2020-03-14] MEDS ORDERED: LORAZEPAM INJ 2 MG/1 ML VIAL IV ONE (19:32)
[2020-03-14] MEDS ORDERED: LORAZEPAM INJ 2 MG/1 ML VIAL ONE (19:34)
[2020-03-14] MEDS ORDERED: MISOPROSTOL 0.2 MG TABLET ONE (20:35)
--- NOTE | 2020-03-14 20:39 | Birth Certificate Data ---
Cert Data Datetime Report Generated by CPYanick: 03/14/2020 20:38 CERTIFICATE DATA 47a. Care: Yes (03/11/2020 21:01:Jessy Ellis RN) 47b. Date of First Visit: 03/14/2020 00:00 (03/11/2020 21:01:Jessy Ellis RN) 47c. Date of Last Visit: 03/14/2020 00:00 (03/11/2020 21:01:Jessy Ellis RN) 47d. Number of Visits: 1 (03/11/2020 21:01:Jessy Ellis RN) 48a. Number of Prev Live Births: 2 (03/11/2020 21:01:Cristina Slater RN) 48b. Now Livin (03/11/2020 21:01:Cristina Slater RN) 48c. Live Births Now : 0 (03/11/2020 21:01:QS system process) 48d. Date of Last Live : 01/20/2019 00:00 (03/11/2020 21:01:Cristina Slater RN) RISK FACTORS IN THIS 49a. Diabetes: No (03/11/2020 21:01:Eula Ovalles RN) 49b. Hypertension: Yes (03/11/2020 21:01:Eula Ovalles RN) Type of Hypertension: Gestational (PIH, Pre-eclampsia) (03/11/2020 21:01:Jessy Ellis RN) 49c. Previous Births: 0 (03/11/2020 21:01:Cristina Slater RN) 49d. Stillborns: No (03/11/2020 21:01:Eula Ovalles RN) 49d. IUGR: No (03/11/2020 21:01:Eula Ovalles RN) 49e. Infertility Treatment: No (03/11/2020 21:01:Eula Ovalles RN) 49f. Previous Cesareans: 2 (03/11/2020 21:01:Cristina Slater RN) Mother's Height 50b. Height Inches: 64 (03/14/2020 20:20:QS system process) Mother's Weight 51a. Pre- Weight (lbs): 155 (03/11/2020 21:01:Jessy Ellis RN) 51b. Weight at Delivery (lbs): 154 (03/14/2020 20:20:QS system process) 52. Dt Last Normal Menses Began: 06/30/2017 00:00 (03/11/2020 21:01:Jessy Ellis RN) Infections Present/Treated 53a. Gonorrhea: No (03/11/2020 21:01:Jessy Ellis RN) Results this Hospital Visit : Negative (03/11/2020 21:01:Jessy Ellis RN) 53b. Syphilis: No (03/11/2020 21:01:Jessy Ellis RN) Results this Hospital Visit: NONREACTIVE (03/11/2020 21:50:QS system process) 53c. Chlamydia: No (03/11/2020 21:01:Jessy Ellis RN) Results this Hospital Visit: Positive (03/11/2020 21:01:Eula Ovalles RN) 53d. Hepatitis B: No (03/11/2020 21:01:Jessy Ellis RN) Results this Hospital Visit: Negative (03/11/2020 21:01:Jessy Ellis RN) 53e. Hepatitis C: Negative (03/11/2020 21::Jessy Ellis RN) 53h. Mother Tested for HBsAG: Yes (03/11/2020 21:01:Jessy Ellis RN) 53i. Date Tested: 03/11/2020 00:00 (03/11/2020 21:01:Jessy Ellis RN) 53j. Test Result: Negative (03/11/2020 21::Jessy Ellis RN) Obstetric Procedures 54a, b, c. Obstetric Procedures: Ultrasound (03/11/2020 21:01:Eula Ovalles RN) Cigarette Smoking Cigarette Smoking: Former Smoker. [id number] (03/11/2020 21::Cristina Slater RN) 55a. 3 Months Before Preg - Ci (03/11/2020 21::Jessy Ellis RN) 55a. Packs: 0 (03/11/2020 21:01:Jessy Ellis RN) 55b. 1st Trimester of Preg- Ci (03/11/2020 21:01:Jessy Ellis RN) 55b. Packs: 0 (03/11/2020 21:01:Jessy Ellis RN) 55c. 2nd Trimester of Preg- Ci (03/11/2020 21:01:Jessy Ellis RN) 55c. Packs: 0 (03/11/2020 21:01:Jessy Ellis RN) 55d. 3rd Trimester of Preg- Ci (03/11/2020 21:01:Jessy Ellis RN) 55d. Packs: 0 (03/11/2020 21:01:Jessy Ellis RN) Onset of Labor 56a. PROM >12 Hrs: -0.12 (03/11/2020 21:01:QS system process) 56b. Precipitous Labor <3 Hrs: 9 (03/11/2020 21:01:QS system process) 56c. Prolonged Labor > 20 Hrs: 9 (03/11/2020 21:01:QS system process) 57a. Induction of Labor: N/A (03/11/2020 21::Veronica Siddiqi RN) 57c. Non-Vertex Presentation A: Vertex (03/11/2020 21::Karina Delacruz RN) 57d. Steroids - Lung Mat: None (03/11/2020 21::Veronica Siddiqi RN) 57d. Steroids - Lung Mat: Not Applicable (03/11/2020 21::Veronica Siddiqi RN) 57f. Mat Ch[place] or Temp >100.4: 99.0 (03/11/2020 21::Veronica Siddiqi RN) 57g. Moderate/Heavy Meconium: Clear (03/11/2020 21::Veronica Siddiqi RN) 57h. Intolerance of Labor: N/A (03/11/2020 21::Veronica Siddiqi RN) : Repeat Elective (03/11/2020 21::Veronica Siddiqi RN) Method of Delivery 58a. Forceps - Unsuccessful A: N/A (03/11/2020 21::Karina Delacruz RN) 58b. Vacuum - Unsuccessful A: N/A (03/11/2020::Karina Delacruz RN) 58c. Presentation at 58c. Presentation at - A : Vertex (03/11/2020 21:01:Karina Delacruz RN) 58c. Presentation at - A : N/A (03/11/2020 21:01:Karina Delacruz RN) 58c. Presentation at - A : Cephalic (03/11/2020 21:01:Karina Delacruz RN) Final Route and Method of Del 58d. Baby A Route/Delivery: (03/11/2020 21:01:Karina Delacruz RN) 58e. Trial of Labor Attempted: No (03/11/2020 21:01:Veronica Siddiqi RN) 58e. Trial of Labor Attempted A: N/A (03/11/2020 21:01:Karina Delacruz RN) 58e. Trial of Labor Attempted B: N/A (03/11/2020 21:01:Veronica Siddiqi RN) Birthweight Baby A: 3005 (03/11/2020 21:01:Jessy Ellis RN) 60a. Pounds : 6 (03/11/2020 21:01:QS system process) 60b. Ounces: 10 (03/11/2020 21:01:QS system process) 61. GA at Delivery Baby A: 38.5 (03/11/2020 21:01:Karina Delacruz RN) : Early Term- 37- 38.6 Weeks (03/11/2020 21:01:QS system process) 62a. 5 Minute Baby A: 9 (03/11/2020 21:01:QS system process)
--- NOTE | 2020-03-14 20:39 | Delivery Summary ---
Del Sum A-C Datetime Report Generated by CPN: 03/14/2020 20:38 DELIVERY PERSONNEL DELIVERY PERSONNEL: [id number] Delivery Doctor:: Partha Lee MD LEATHER COLORER:: Arnold Fowler, LEATHER COLORER Heel Molder:: Veronica Siddiqi RN Neonatal Nurse Practitioner:: DARIN Pearl Nursery Nurse:: Jackie Wilburn RN Pulping Machine Operator/CREDIT RELATIONSHIP MANAGER: Gianna Fenton CST Pulping Machine Operator/CREDIT RELATIONSHIP MANAGER: Selin Oakley BUSINESS SYSTEMS MANAGER MATERNAL INFORMATION Delivery Anesthesia: Spinal Medications After Delivery: Pitocin Bolus-Please Comment; Pitocin 30 Units in 500ml NS/D5W; Cytotec 1000mcg Per Rectum/Vagina Meds After Delivery Comment: 20 units in 1000mLs LR in OR followed by 30 units in 500mLs NS Delivery QBL: 340 Maternal Complications: None LABOR SUMMARY EDC: 03/23/2020 00:00 No. Babies in Womb: 1 Attempted: No LABOR INFORMATION Reason for Induction: Not Applicable Onset of Labor: 03/14/2020 09:30 Oxytocin: N/A Group B Beta Strep: Negative Name of Antibiotic Given: n/a Steroids Given: None Reason Steroids Not Administered: Not Applicable MEMBRANES Membranes Rupture Method: Artificial Rupture of Membranes: 03/14/2020 18:36 Length of Rupture (hr): -0.12 Amniotic Fluid Color: Clear Amniotic Fluid Amount: Moderate Amniotic Fluid Odor: Normal STAGES OF LABOR Stage 3 hr: 0 Stage 3 min: 1 Total Time in Labor hr: 9 Total Time in Labor min: 0 VAGINAL DELIVERY Laceration Extension #1: N/A Laceration Repair: Not Applicable Sponge Count Correct: N/A Sharps Count Correct: N/A CSECTION DELIVERY Primary Indication: N/A Secondary Indication: Repeat Elective CSection Urgency: Emergency CSection Incidence: Repeat Labor: Labor Elective: Elective CSection Incision: Lower Uterine Transverse Other Sterilization Procedure: Filshie Clips BABY A INFORMATION Delivery Date/Time: 03/14/2020 18:29 Method of Delivery: Nurse Controlled Delivery: No Born in Route : No : N/A Forceps: N/A Vacuum Extraction: N/A Shoulder Dystocia : No PRESENTATION/POSITION BABY A Presentation: Cephalic Cephalic Presentation: Vertex Breech Presentation: N/A PLACENTA INFORMATION BABY A Placenta Delivery Time : 03/14/2020 18:30 Placenta Method of Delivery: Manual Removal Placenta Status: Delivered SCORES BABY A Heart Rate 1 min: >100 bpm Resp Effort 1 min: Good Cry Reflex Irritability 1 min: Cough or Sneeze or Pulls Away Muscle Tone 1 min: Active Motion Color 1 min: Blue/Pale Resuscitation Effort 1 min: Tactile Stimulation SCORE 1 MIN: 8 Heart Rate 5 min: >100 bpm Resp Effort 5 min: Good Cry Reflex Irritability 5 min: Cough or Sneeze or Pulls Away Muscle Tone 5 min: Active Motion Color 5 min: Body Benn[place], Extremities Blue Resuscitation Effort 5 min: Tactile Stimulation SCORE 5 MIN: 9 INFANT INFORMATION BABY A Gestational Age at Delivery: 38.5 Gestational Status: Early Term- 37- 38.6 Weeks Infant Outcome : Liveborn Infant Condition : Stable Infant Sex: Female IDENTIFICATION BABY A Verification Date/Time: 03/14/2020 18:52 ID Band Number: [id number] Mother's Name Verified: Yes Infant RN Verifying : PamelaROBERT Additional Verifying Personnel: ROBERT Georges WEIGHT/LENGTH BABY A Infant Birthweight (gm): 3005 Infant Weight (lb): 6 Infant Weight (oz): 10 Infant Length (in): 20.50 Length (cm): 52.07 CORD INFORMATION BABY A No. Cord Vessels: 3 Nuchal Cord : N/A Cord Blood Taken: Yes-For Eval (Mom's Blood Type - or O+) Suction: Mouth; Nose; Pharynx ASSESSMENT BABY A Skin to Skin: No BABY B INFORMATION : N/A
[2020-03-14] MEDS: KETOROLAC TROMETHAMINE INJ/PF 30 MG/1 ML SDV IV SCH (21:28)
[2020-03-15] MEDS: DOCUSATE SODIUM 100 MG CAPSULE PO SCH ×4 (02:50→18:14)
[2020-03-15] MEDS: KETOROLAC TROMETHAMINE INJ/PF 30 MG/1 ML SDV IV SCH ×2 (06:01→14:24)
[2020-03-15 08:43] LABS: HEMATOCRIT 24.9 % (36.0-47.0); HEMOGLOBIN 8.2 g/dL (12.0-15.5); MEAN CORPUSCULAR HEMOGLOBIN 21.5 pg (27.0-33.4); MEAN CORPUSCULAR HGB CONC 32.8 g/dL (32.0-36.0); MEAN CORPUSCULAR VOLUME 66 fl (80-97); PLATELET COUNT 171 10^3/uL (150-450); RED CELL DISTRIBUTION WIDTH 17.8 % (11.5-14.0); WHITE BLOOD COUNT 7.1 10^3/uL (4.0-10.5)
[2020-03-15] MEDS: IBUPROFEN 800 MG TABLET PO SCH ×4 (09:09→23:29)
[2020-03-15] MEDS: PRENATAL VITAMIN W DHA CAPSULE PO SCH (10:15)
--- NOTE | 2020-03-15 14:15 | PDOC PROGRESS REPORT ---
Subjective-OB Progress Note for:: 03/15/20 Subjective: reports bleeding slowing, pain controlled with current meds. denies needs Physical Exam (OB) Vital Signs: Temp Pulse Resp BP Pulse Ox 98.1 F 62 16 120/70 99 03/15/20 12:00 03/15/20 12:00 03/15/20 12:00 03/15/20 12:00 03/15/20 12:00 Intake & Output 03/14/20 03/15/20 03/16/20 06:59 06:59 06:59 Intake Total 468 250 Output Total 300 Balance 168 250 Weight 69.539 kg - Dressing Removed: No - drainage outlined Incision: Dressing Closure Type: opsite - Maternal Morbidity 59. Maternal Morbidity (serious complications experinced by the mother associated with labor and delivery: None of the above - Abdomen Description: Tender, Soft Hernia Present: No Fundal Description: Firm, Midline Fundal Height: u/u - u/2 - Abdominal Distension: No distension - Extremities Lower extremities: Karina's sign - neg Calf: Normal, Nontender Objective-Diagnostic Laboratory: 03/15/20 07:33 03/14/20 03/14/20 03/14/20 16:40 17:13 17:31 WBC 8.6 RBC 4.37 Hgb 9.1 L Hct 28.7 L MCV 66 L MCH 20.8 L MCHC 31.6 L RDW 18.0 H Plt Count 215 Seg Neutrophils % 75.9 Urine Color YELLOW Urine Appearance CLEAR Urine pH 6.0 Ur Specific [place] 1.024 Urine Protein 30 H Urine Glucose (UA) NEGATIVE Urine Ketones 20 H Urine Blood MODERATE H Urine Nitrite NEGATIVE Ur Leukocyte Esterase NEGATIVE Urine WBC (Auto) 1 Urine RBC (Auto) 181 Blood Type O POSITIVE Antibody Screen NEGATIVE 03/15/20 07:33 WBC 7.1 RBC 3.80 Hgb 8.2 L Hct 24.9 L MCV 66 L MCH 21.5 L MCHC 32.8 RDW 17.8 H Plt Count 171 Seg Neutrophils % Urine Color Urine Appearance Urine pH Ur Specific [place] Urine Protein Urine Glucose (UA) Urine Ketones Urine Blood Urine Nitrite Ur Leukocyte Esterase Urine WBC (Auto) Urine RBC (Auto) Blood Type Antibody Screen Assessment and Plan(PN) - Time Spent with Patient Time with patient: Less than 15 minutes Medications reviewed and adjusted accordingly: Yes - Disposition Anticipated Discharge Disposition: Home, Self Care Anticipated Discharge Timeframe: within 48 hours
[2020-03-16] MEDS: IBUPROFEN 800 MG TABLET PO SCH (06:16)
[2020-03-16] MEDS: PRENATAL VITAMIN W DHA CAPSULE PO SCH ×2 (09:20→09:22)
[2020-03-16] MEDS: DOCUSATE SODIUM 100 MG CAPSULE PO SCH (09:20)
--- NOTE | 2020-03-16 09:30 | PDOC DISCHARGE SUMMARY ---
Impression - Admit/DC Date/PCP Admission Date/Primary Care Provider: 03/14/20 16:36 DAVID RUSSELL MD Discharge Date: 03/16/20 - POD #2, doing well, s/p Repeat section w/ BTL. Doing well, no complaints - Discharge Diagnosis (1) Tubal ligation status Is this a current diagnosis for this admission?: Yes (2) Acute blood loss anemia Is this a current diagnosis for this admission?: Yes (3) Status post primary low transverse section Is this a current diagnosis for this admission?: Yes - Additional Information Resuscitation Status: Full Code Discharge Diet: As Tolerated, Regular Discharge Activity: Activity As Tolerated, No Lifting Over 10 Pounds, Pelvic Rest Referrals: DAVID RUSSELL MD [Primary Care Provider] - Prescriptions: Ferrous Sulfate 325 mg PO DAILY 30 Days #30 tablet. Ibuprofen [Motrin 800 mg Tablet] 800 mg PO Q6 #60 tablet Oxycodone HCl/Acetaminophen [Percocet 5-325 mg Tablet] 1 tab PO Q4HP PRN #30 tablet PRN Reason: Pain Scale Of 4 Home Medications: Ferrous Sulfate 325 mg PO DAILY 30 Days #30 tablet. 03/16/20 Ibuprofen [Motrin 800 mg Tablet] 800 mg PO Q6 #60 tablet 03/16/20 Oxycodone HCl/Acetaminophen [Percocet 5-325 mg Tablet] 1 tab PO Q4HP PRN #30 tablet 03/16/20 Vit/Dha [ Multi + Dha Capsule] 1 cap PO DAILY capsule 03/16/20 HPI Reason(s) for Admission: Ceasarean Section-Repeat, Tubal Ligation Procedures: Other - scant PNC this Hospital Course 59. Maternal Morbidity (serious complications experinced by the mother associated with labor and delivery: None of the above Results Laboratory Results: WBC 7.1 10^3/uL (4.0-10.5) 03/15/20 07:33 RBC 3.80 10^6/uL (3.72-5.28) 03/15/20 07:33 Hgb 8.2 g/dL (12.0-15.5) L 03/15/20 07:33 Hct 24.9 % (36.0-47.0) L 03/15/20 07:33 MCV 66 fl (80-97) L 03/15/20 07:33 MCH 21.5 pg (27.0-33.4) L 03/15/20 07:33 MCHC 32.8 g/dL (32.0-36.0) 03/15/20 07:33 RDW 17.8 % (11.5-14.0) H 03/15/20 07:33 Plt Count 171 10^3/uL (150-450) 03/15/20 07:33 Lymph % (Auto) 18.4 % (13-45) 03/14/20 17:31 [place] % (Auto) 5.0 % (3-13) 03/14/20 17:31 Eos % (Auto) 0.3 % (0-6) 03/14/20 17:31 Baso % (Auto) 0.4 % (0-2) 03/14/20 17:31 Absolute Neuts (auto) 6.5 10^3/uL (1.7-8.2) 03/14/20 17:31 Absolute Lymphs (auto) 1.6 10^3/uL (0.5-4.7) 03/14/20 17:31 Absolute Monos (auto) 0.4 10^3/uL (0.1-1.4) 03/14/20 17:31 Absolute Eos (auto) 0.0 10^3/uL (0.0-0.6) 03/14/20 17:31 Absolute Basos (auto) 0.0 10^3/uL (0.0-0.2) 03/14/20 17:31 Seg Neutrophils % 75.9 % (42-78) 03/14/20 17:31 Urine Color YELLOW 03/14/20 16:40 Urine Appearance CLEAR 03/14/20 16:40 Urine pH 6.0 (5.0-9.0) 03/14/20 16:40 Ur Specific [place] 1.024 03/14/20 16:40 Urine Protein 30 mg/dL (NEGATIVE) H 03/14/20 16:40 Urine Glucose (UA) NEGATIVE mg/dL (NEGATIVE) 03/14/20 16:40 Urine Ketones 20 mg/dL (NEGATIVE) H 03/14/20 16:40 Urine Blood MODERATE (NEGATIVE) H 03/14/20 16:40 Urine Nitrite NEGATIVE (NEGATIVE) 03/14/20 16:40 Urine Bilirubin NEGATIVE (NEGATIVE) 03/14/20 16:40 Urine Urobilinogen NEGATIVE mg/dL (<2.0) 03/14/20 16:40 Ur Leukocyte Esterase NEGATIVE (NEGATIVE) 03/14/20 16:40 Urine WBC (Auto) 1 /HPF 03/14/20 16:40 Urine RBC (Auto) 181 /HPF 03/14/20 16:40 Squamous Epi Cells Auto 1 /HPF 03/14/20 16:40 Urine Mucus (Auto) MOD /LPF 03/14/20 16:40 Urine Ascorbic Acid NEGATIVE (NEGATIVE) 03/14/20 16:40 Urine Opiates Screen NEGATIVE 03/14/20 16:40 Urine Methadone Screen NEGATIVE 03/14/20 16:40 Ur Barbiturates Screen NEGATIVE 03/14/20 16:40 Ur Phencyclidine Scrn NEGATIVE 03/14/20 16:40 Ur Amphetamines Screen NEGATIVE 03/14/20 16:40 U Benzodiazepines Scrn NEGATIVE 03/14/20 16:40 Urine Cocaine Screen NEGATIVE 03/14/20 16:40 U Marijuana (THC) Screen NEGATIVE 03/14/20 16:40 RPR NONREACTIVE (NONREACTIVE) 03/14/20 17:13 Blood Type O POSITIVE 03/14/20 17:13 Antibody Screen NEGATIVE 03/14/20 17:13 Crossmatch See Detail 03/14/20 17:13 Plan Plan of Treatment: d/c home. F/up with [facility] in one week for incision check Time Spent: Less than 30 Minutes
[2020-03-16 12:24] VITALS: BP 102/58
[2020-03-16] MEDS ORDERED: INFLUENZA QUAD (6MOS+) 2020-21 VAC 0.5 ML SYR IM ONE (12:30)
[2020-03-17] MEDS ORDERED: INFLUENZA QUAD (6MOS+) 2020-21 VAC 0.5 ML SYR IM ONE (08:00)
== END 2020-03-16 13:09 | disposition home or self-care (01) | DRG 785 ==
LOC: LC 16:32 → LR 16:36 → 2N 21:40
PROVIDERS: ADMIT Obstetrics & Gynecology; ATTEND Obstetrics & Gynecology
PROC: 10D00Z1 Extraction of Products of Conception, Low, Open Approach (ICD-10-PCS; principal; 2020-03-14)
PROC: 0UL70CZ Occlusion of Bilateral Fallopian Tubes with Extraluminal Device, Open Approach (ICD-10-PCS; 2020-03-14)
PROC: 3E02340 Introduction of Influenza Vaccine into Muscle, Percutaneous Approach (ICD-10-PCS; 2020-03-16)
DX: O34.211 Maternal care for low transverse scar from previous cesarean delivery (principal); O77.0 Labor and delivery complicated by meconium in amniotic fluid; O99.02 Anemia complicating childbirth; D64.9 Anemia, unspecified; Z37.0 Single live birth; Z87.891 Personal history of nicotine dependence; Z3A.38 38 weeks gestation of pregnancy; Z30.2 Encounter for sterilization; Z23 Encounter for immunization
CPT/HCPCS: 1961; 36415; 80307; 81001; 85025; 85027; 86592; 86850; 86900; 86901; 86920; 90471; 90686; 94760; 94799; G0008; J0131; J0690; J1885; J2060; J2250; J2405; J2590; J3010; J3490